=== PATIENT | female | born 1955 | race Caucasian/White ===

== ENCOUNTER 2017-12-09 03:08 | Outpatient (CLI) | payer OTHER, SELFPAY ==
[2017-12-09 11:37] LABS: TSH (W/Ref FT4) 0.27 uIU/mL (0.358-3.74)
[2017-12-09 11:48] LABS: Hemoglobin A1C 7.9 % (4.5-6.2)
== END 2017-12-09 03:28 ==
PROVIDERS: PCP Internal Medicine; Visit Provider Internal Medicine
DX: E03.9 Hypothyroidism, unspecified (principal); E78.5 Hyperlipidemia, unspecified; E11.65 Type 2 diabetes mellitus with hyperglycemia
CPT/HCPCS: 36415; 83036; 84439; 84443

== ENCOUNTER 2018-04-18 02:33 | Outpatient (CLI) | payer OTHER, SELFPAY ==
[2018-04-18 10:55] LABS: Hemoglobin A1C 8.4 % (4.5-6.2)
[2018-04-18 11:10] LABS: ALT 35 U/L (12-78); AST 17 U/L (15-37); Albumin 3.7 g/dL (3.4-5.0); Alkaline Phosphatase 54 U/L (46-116); BUN 18 mg/dL (7-18); Bilirubin, Total 0.7 mg/dL (0.2-1.0); Calcium 9.8 mg/dL (8.5-10.1); Chloride 109 mmol/L (98-107); Cholesterol 189 mg/dL (50-200); Estimated GFR 50.33 (mL/min/1.73m2); Glucose 182 mg/dL (70-100); HDL Cholesterol 72 mg/dL (40-60); LDL CHOLESTEROL 98 mg/dL (<100); Sodium 147 mmol/L (136-145); TSH (W/Ref FT4) 0.57 uIU/mL (0.358-3.74); Total Protein 6.8 g/dL (6.4-8.2); Triglyceride 88 mg/dL (30-150)
== END 2018-04-18 02:53 ==
DX: E03.9 Hypothyroidism, unspecified (principal); I10 Essential (primary) hypertension; E11.65 Type 2 diabetes mellitus with hyperglycemia; E78.5 Hyperlipidemia, unspecified; K21.9 Gastro-esophageal reflux disease without esophagitis; E66.9 Obesity, unspecified
CPT/HCPCS: 36415; 80053; 80061; 83721; 83036; 84443

== ENCOUNTER 2018-06-15 18:01 | Outpatient (REF) | payer OTHER, SELFPAY ==
--- NOTE | 2018-06-15 15:40 | PAPFT_PTH ---
PATIENT: Romy Craven LOC: [facility] U#:[id number] AGE/SX: 62/F ROOM: RE06/15/[address]: Mona Bowden APRN : 1955 BED: DIS: 06/15/2018 SPEC #: [id number] RECD: 06/16/18 16:40 STATUS: ARMAND REMatilda #: [id number] REG: 06/15/18 15:[address]: Mona Bowden [facility]PT[facility] Cytology RECD BY: Anthony Hendricks Tissues: 1 - CX/ENDOCX FOR PAP SMEARS Procedures: PAP THIN PREP/UVM Screening HPV DNA PROBE Comments: [id number]
== END 2018-06-15 18:21 ==
LOC: LBN 18:01
DX: Z12.4 Encounter for screening for malignant neoplasm of cervix (principal); Z11.51 Encounter for screening for human papillomavirus (HPV)
CPT/HCPCS: 88142; 87624

== ENCOUNTER 2018-06-27 01:59 | Outpatient (CLI) | payer OTHER, SELFPAY ==
[2018-06-27 11:44] LABS: Hemoglobin A1C 8.1 % (4.5-6.2)
== END 2018-06-27 02:19 ==
DX: E11.65 Type 2 diabetes mellitus with hyperglycemia (principal)
CPT/HCPCS: 36415; 83036

== ENCOUNTER 2018-07-21 00:07 | Outpatient (CLI) | payer OTHER, SELFPAY ==
--- NOTE | 2018-07-21 08:47 | DI.MAMMO_ITS ---
SYMPTOM/DIAGNOSIS: SCREENING, Z12.31 MAMMOGRAMS: Mammograms were interpreted according to the usual protocol including computer analysis with CAD system, tomosynthesis and C view imaging. The breasts are of moderate density with fairly symmetrical distribution of fibroglandular tissue. No dominant mass or clumped microcalcification is identified in either breast. Current examination is compared with previous examinations including 07/2016 and there has been no gross interval change in appearance in comparison with the previous studies. CONCLUSION: No specific evidence of malignancy at this time. Routine screening examinations are suggested at yearly intervals in this age group according to the ACS/ACR guidelines. Category 1. Breast density, Category B. MQSA ASSESSMENT OF FINDINGS: Negative. Category 1. Patient will receive a letter notifying them of these results. BI-RADS category B. There are scattered areas of fibroglandular density.
== END 2018-07-21 00:27 ==
DX: Z12.31 Encounter for screening mammogram for malignant neoplasm of breast (principal)
CPT/HCPCS: 77063; 77067

== ENCOUNTER 2018-09-05 02:20 | Outpatient (CLI) | payer OTHER, SELFPAY ==
[2018-09-05 10:57] LABS: Hemoglobin A1C 7.2 % (4.5-6.2)
[2018-09-05 13:13] LABS: ALT 27 U/L (12-78); AST 15 U/L (15-37); Albumin 3.8 g/dL (3.4-5.0); Alkaline Phosphatase 59 U/L (46-116); Anion Gap 11.6 mmol/L (3-11); BUN 18 mg/dL (7-18); Bilirubin, Total 0.7 mg/dL (0.2-1.0); CO2 25.4 mmol/L (21.0-32.0); CREATININE 1.08 mg/dL (0.55-1.02); Calcium 9.4 mg/dL (8.5-10.1); Calculated LDL 85; Chloride 108 mmol/L (98-107); Cholesterol 166 mg/dL (50-200); Estimated GFR 51.41 (mL/min/1.73m2); Glucose 77 mg/dL (70-100); HDL Cholesterol 54 mg/dL (40-60); Potassium 4.4 mmol/L (3.5-5.1); Sodium 145 mmol/L (136-145); Total Protein 6.8 g/dL (6.4-8.2); Triglyceride 138 mg/dL (30-150)
== END 2018-09-05 02:40 ==
DX: E03.9 Hypothyroidism, unspecified (principal); E11.65 Type 2 diabetes mellitus with hyperglycemia; E66.9 Obesity, unspecified; E78.5 Hyperlipidemia, unspecified; I10 Essential (primary) hypertension; E11.9 Type 2 diabetes mellitus without complications
CPT/HCPCS: 36415; 80053; 80061; 83721; 83036

== ENCOUNTER 2018-10-13 08:15 | Outpatient (CLI) | payer OTHER, SELFPAY ==
[2018-10-13 11:14] LABS: Hemoglobin A1C 7.3 % (4.5-6.2)
[2018-10-13 14:46] LABS: TSH (W/Ref FT4) 0.16 uIU/mL (0.358-3.74)
[2018-10-13 15:03] LABS: FREE T4 1.26 ng/dL (0.76-1.46)
== END 2018-10-13 08:35 ==
DX: E11.65 Type 2 diabetes mellitus with hyperglycemia (principal); E03.9 Hypothyroidism, unspecified
CPT/HCPCS: 36415; 83036; 84439; 84443

== ENCOUNTER 2019-01-09 02:43 | Outpatient (CLI) | payer OTHER, SELFPAY ==
[2019-01-09 12:44] LABS: Hemoglobin A1C 7.3 % (4.5-6.2)
== END 2019-01-09 03:03 ==
DX: E03.9 Hypothyroidism, unspecified (principal); E11.65 Type 2 diabetes mellitus with hyperglycemia; G47.00 Insomnia, unspecified
CPT/HCPCS: 36415; 83036; 84443

== ENCOUNTER 2019-10-09 02:26 | Outpatient (CLI) | payer BC, SELFPAY ==
[2019-10-09 12:45] LABS: Hemoglobin A1C 9.2 % (3.8-5.6)
[2019-10-09 13:02] LABS: ALT 41 U/L (14-59); AST 22 U/L (15-37); Alkaline Phosphatase 47 U/L (46-116); Anion Gap 13.9 mmol/L (3-11); BUN 30 mg/dL (7-18); Bilirubin, Total 0.9 mg/dL (0.2-1.0); CO2 22.1 mmol/L (21.0-32.0); CREATININE 1.36 mg/dL (0.55-1.02); Calcium 9.3 mg/dL (8.5-10.1); Chloride 107 mmol/L (98-107); Estimated GFR 39.27 (mL/min/1.73m2); Glucose 167 mg/dL (74-106); Potassium 4.7 mmol/L (3.5-5.1); Sodium 143 mmol/L (136-145); TSH (W/Ref FT4) 1.07 uIU/mL (0.36-3.74); Total Protein 6.9 g/dL (6.4-8.2)
== END 2019-10-09 02:46 ==
DX: E03.9 Hypothyroidism, unspecified (principal); E11.65 Type 2 diabetes mellitus with hyperglycemia; E66.09 Other obesity due to excess calories; Z68.32 Body mass index [BMI] 32.0-32.9, adult; G47.00 Insomnia, unspecified
CPT/HCPCS: 36415; 80053; 83036; 84443

== ENCOUNTER 2019-11-12 22:21 | Emergency (ER) | payer OTHER, BC, SELFPAY ==
[2019-11-12 22:08] VITALS: BP 132/90; PULSE 69; RESP 16; TEMP 36.3; O2SAT 99
--- NOTE | 2019-11-12 22:17 | ED.GENADUL_ITS ---
Discharge Plan Disposition Patient Disposition: HOME Condition: Stable Discharge Details Chief Complaint: Orthopedic Clinical Impression: Contusion of leg, right Primary Care Provider: Mona Bowden ED Provider: Ed Hernandez Home Meds and New Rx's Prescriptions: Continued (DME) lancets [BD Ultra Fine Lancets] 33 gauge misc See Dose Instructions .ROUTE .MEDSUPPLY Qty: 100 RF: 3 magnesium oxide 420 mg tablet 420 mg PO DAILY Qty: 90 RF: 0 glipizide 10 mg tablet 10 mg PO BID Qty: 180 RF: 3 multivitamin [Once Daily] 1 EACH tablet 1 ea PO DAILY RF: 0 (DME) blood-glucose meter [FreeStyle Precision Felipe Meter] misc See Dose Instructions .ROUTE .MEDSUPPLY Qty: 1 RF: 0 (DME) FreeStyle Test strip See Dose Instructions .ROUTE .MEDSUPPLY Qty: 200 RF: 3 (DME) FreeStyle Jessica 14 Day [place] Misc See Dose Instructions .ROUTE .MEDSUPPLY Qty: 1 RF: 0 levothyroxine 88 mcg capsule 88 mcg PO DAILY Qty: 90 RF: 3 lisinopril 10 mg tablet 10 mg PO DAILY Qty: 90 RF: 3 metformin 1,000 mg tablet 1,000 mg PO BID Qty: 180 RF: 3 semaglutide 3 mg tablet 3 mg PO DAILY Qty: 90 RF: 3 pravastatin [Pravachol] 40 mg tablet 40 mg PO DAILY Qty: 90 RF: 4 (DME) FreeStyle Jessica 14 Day Sensor Kit See Dose Instructions .ROUTE .MEDSUPPLY Qty: 1 RF: 6 acetaminophen [Tylenol] 325 MG tablet 650 mg PO Q4H PRN PRNRF: 0 sulfamethoxazole-trimethoprim [Bactrim] 400-80 mg Tablet 1 tab PO BID RF: 0 Discharge Instructions Instructions: Contusion in Adults (ED) Additional Instructions: take tylenol if needed for pain, 1000mg every 6 hours follow up with your primary care provider if pain continues in a week return for worsening pain, difficulty breathing, severe headache or if you feel more ill Stand Alone Forms: Work Release Medical Decision Making 63 yo female with hx of gerd, dm, htn, hld, who comes in with ems after she fell. 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 Denies loc and no prior symptoms such as chest pain/pressure, dyspnea, headache, abdominal pain. She arrives with pain in the right posterior mid thigh. She has no traumatic findings on exam and has full rom of the hip, knee and ankle with intact sensation and pulses. No back tenderness, abd tenderness, chest tenderness, neck tenderness or scalp deformities. Suspect contusion but will xray to eval for fx pt declining xrays as she doesn't feel it is likely broken and would like tylenol and crutches. I did recommend xrays but she declined. She has capacity to make her own decisions and understands risks of missing fractures such as prolonged healing and dysfunction,though I agree it is unlikely a fracture given full rom. Will haveher f/u with pcp and return precautions given Differential Diagnosis Differential Diagnosis: contusion sprain fx HPI General Mode of arrival: ambulatory . Limitations to Documentation: no limitations . Information obtained by: patient . History of Present Illness 63 year old F presents to the emergency department with the chief complaint of right leg pain, described as moderate, and it has been constant. No relieving factors improve symptom(s), Patient did receive the following treatments prior to arrival, none Related Data Home Medications Medication Instructions Recorded Confirmed multivitamin [Once Daily] 1 ea PO DAILY 09/22/12 11/12/19 acetaminophen [Tylenol] 650 mg PO Q4H PRN PRN tab 11/05/15 11/12/19 lancets 33 gauge #100 each 05/26/18 03/13/19 magnesium oxide 420 mg tablet 420 mg PO DAILY #90 tab 05/26/18 11/12/19 blood sugar diagnostic #200 each 06/10/18 03/13/19 blood-glucose meter #1 each 06/10/18 03/13/19 glipizide 10 mg tablet 10 mg PO BID #180 tab-cap 06/15/18 11/12/19 flash glucose scanning reader #1 each 08/23/19 levothyroxine 88 mcg capsule 88 mcg PO DAILY #90 cap 10/23/19 11/12/19 lisinopril 10 mg tablet 10 mg PO DAILY #90 tab-cap 10/23/19 11/12/19 metformin 1,000 mg tablet 1,000 mg PO BID #180 tab-cap 10/23/19 11/12/19 pravastatin 40 mg tablet 40 mg PO DAILY #90 tab-cap 10/23/19 11/12/19 semaglutide 3 mg tablet 3 mg PO DAILY #90 tab 10/23/19 11/12/19 flash glucose sensor #1 each 11/06/19 sulfamethoxazole-trimethoprim 1 tab PO BID 11/12/19 11/12/19 [Bactrim] Previous Rx's Medication Instructions Recorded acetaminophen [Tylenol] 650 mg PO Q4H PRN PRN tab 11/05/15 lancets 33 gauge #100 each 05/26/18 magnesium oxide 420 mg tablet 420 mg PO DAILY #90 tab 05/26/18 blood sugar diagnostic #200 each 06/10/18 blood-glucose meter #1 each 06/10/18 glipizide 10 mg tablet 10 mg PO BID #180 tab-cap 06/15/18 flash glucose scanning reader #1 each 08/23/19 levothyroxine 88 mcg capsule 88 mcg PO DAILY #90 cap 10/23/19 lisinopril 10 mg tablet 10 mg PO DAILY #90 tab-cap 10/23/19 metformin 1,000 mg tablet 1,000 mg PO BID #180 tab-cap 10/23/19 pravastatin 40 mg tablet 40 mg PO DAILY #90 tab-cap 10/23/19 semaglutide 3 mg tablet 3 mg PO DAILY #90 tab 10/23/19 flash glucose sensor #1 each 11/06/19 Allergies Allergy/AdvReac Type Severity Reaction Status Date / Time erythromycin base AdvReac Unknown DIARRHEA Verified 11/12/19 22:12 General Stated Complaint: Orthopedic NICK: 4 Review of Systems All systems reviewed & are unremarkable except as noted in HPI and below Constitutional Constitutional: Denies chills, Denies fever(s) and Denies weakness Cardiovascular Cardiovascular: Denies chest pain and Denies dyspnea Respiratory Respiratory: Denies cough and Denies dyspnea Gastrointestinal Gastrointestinal: Denies abdominal pain, Denies nausea and Denies vomiting Musculoskeletal Musculoskeletal: Denies joint swelling Neurologic Neurologic: Denies weakness Psychiatric Psychiatric: Denies depression [facility] Medical History (Updated 11/12/19 @ 22:23 by Ed Hernandez MD) Acute lateral meniscal injury of right knee (Acute 11/15/15) Acute lateral meniscus tear of right knee (Acute 08/26/15) meniscectomy 11/2015 Calculus of kidney and ureter (Active 10/04/12) Left ureteroscopy with stone removal by Dr. Gilbert 10/04/2012. Closed fracture of proximal end of left humerus (Acute ~12/2015) Decreased renal function (Acute) Diabetes DM (diabetes mellitus), type 2, uncontrolled (Chronic) GERD (gastroesophageal reflux disease) (Acute) Hyperlipidemia Hyperlipidemia (Chronic 09/22/12) Hypertension Hypertension (Chronic) Hypothyroidism (Chronic 09/22/12) Knee pain, right (Acute 09/21/13) Obesity (Chronic 09/22/12) Pap smear vag w ASC-US (Resolved 03/04/02) neg. HPV Surgical History Kidney Stone Extraction (~10/2012) Family History Mother Essential hypertension Heart disease Father , 64 Diabetes Essential hypertension Heart disease Sister Essential hypertension Hyperlipidemia Sister Diabetes Sister Diabetes Sister No problems noted. Daughter No problems noted. Social History Smoking/Tobacco Use Status: Never Second Hand Exposure: Yes Alcohol Intake: never Drug use: Never Substance use type: does not use Caregiver/Support person: No Household members: none Housing: house Communication Needs: Corrective Lenses Do you need help understanding health information?: Never Pets and animals: Yes Pets and animals: cat(s) Sexually active: No Do you think of yourself as: straight/heterosexual Current gender identity: female What is your relationship status?: How often do you talk on the phone with friends or family?: three or more times per week How often do you get together with friends or relatives?: once per week How often do you attend gnosticist or taoism services?: 4 or more times per year Do you belong to any clubs or organized social groups?: no Panel score (0-1 are the most socially isolated patients): 2 What type of physical activity do you participate in: walking Duration: 15-30 minutes/day Frequency: 1-2 times per week Alexandrea/Protestant: Buddhism Special alexandrea needs: No Seatbelt use: always Helmet use: No Drive intox 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 Do you feel safe at home: Yes Do you feel safe in your relationship?: Yes Exam Const General: no acute distress Orientation: alert HENMT Head: normal to inspection Ears: external ears normal General nose exam: external nose normal Mouth: moist mucous membranes Eyes General: appearance normal, both eyes and all related structures Neck Neck: normal visual inspection Resp Effort & Inspection: normal respiratory effort and able to speak in complete sentences Cardio Rate: regular rate Skin General skin exam: no rashes or lesions noted Neuro General: patient alert and patient oriented x3 Extrem General: full ROM Psych Mental Status: mental status grossly normal Course Vital Signs Vital signs: Vital Signs Temperature 36.3 C L 11/12/19 22:08 Pulse 69 11/12/19 22:08 Respiratory Rate 16 11/12/19 22:08 Blood Pressure 132/90 11/12/19 22:08 Pulse Oximetry 99 11/12/19 22:08 Temperature 36.3 C L 11/12/19 22:08 Temperature Source Skin 11/12/19 22:08 Pulse 69 11/12/19 22:08 Respiratory Rate 16 11/12/19 22:08 Blood Pressure 132/90 11/12/19 22:08 Pulse Oximetry 99 11/12/19 22:08 Pain Level 4 11/12/19 22:08
[2019-11-12] MEDS: Acetaminophen 500 MG TAB 1000 MG PO (22:22)
[2019-11-12] MEDS: Cyclobenzaprine 10 MG TAB PO (23:00)
== END 2019-11-12 23:30 | disposition home or self-care (01) ==
PROVIDERS: Emergency Provider Emergency Medicine
DX: S70.11XA Contusion of right thigh, initial encounter (principal); W01.0XXA Fall on same level from slipping, tripping and stumbling without subsequent striking against object, initial encounter; Y99.0 Civilian activity done for income or pay; E11.9 Type 2 diabetes mellitus without complications; Z79.84 Long term (current) use of oral hypoglycemic drugs; I10 Essential (primary) hypertension
CPT/HCPCS: 99283; E0114

== ENCOUNTER 2020-03-06 03:25 | Outpatient (CLI) | payer BC, SELFPAY ==
[2020-03-06 12:35] LABS: Hemoglobin A1C 8.1 % (<5.7)
== END 2020-03-06 03:45 ==
DX: E11.65 Type 2 diabetes mellitus with hyperglycemia (principal)
CPT/HCPCS: 36415; 83036

== ENCOUNTER 2020-05-14 19:01 | Outpatient (REF) | payer OTHER, SELFPAY ==
[2020-05-14 21:47] LABS: Abs Immature Grans 0.01 10^3/uL (0.0-0.06); Absolute Basophil Count 0.04 10^3/uL (0.0-0.2); Absolute Eosinophil Count 0.19 10^3/uL (0.0-0.7); Absolute Lymphocyte Count 2.63 10^3/uL (1.2-3.4); Absolute Monocyte Count 0.57 10^3/uL (0.1-0.8); Absolute Neutrophil Count 3.49 10^3/uL (1.2-6.7); Basophils % 0.6; Eosinophils % 2.7; HCT 37.2 % (36.0-46.0); HGB 12.2 g/dL (11.2-15.7); Immature Grans % 0.1; MCH 27.7 pg (27.0-33.0); MCHC 32.8 % (32.0-36.0); MCV 84.5 fL (80-95); MPV 11.3 fL (8.0-11.0); Monocytes % 8.2; Neutrophils % 50.4; Nucleated RBC 0 %; Platelet Count 297 10^3/uL (130-400); RDW 13.5 % (11.7-14.6); RDW-SD 41.9 fL; WBC 6.93 10^3/uL (4.4-10.8)
[2020-05-14 21:58] LABS: ALT 40 U/L (14-59); AST 20 U/L (15-37); Albumin 3.9 g/dL (3.4-5.0); Alkaline Phosphatase 51 U/L (46-116); Anion Gap 10.2 mmol/L (3-11); BUN 26 mg/dL (7-18); Bilirubin, Total 0.6 mg/dL (0.2-1.0); CO2 25.8 mmol/L (21.0-32.0); CREATININE 1.5 mg/dL (0.55-1.02); Calcium 9.7 mg/dL (8.5-10.1); Chloride 107 mmol/L (98-107); Estimated GFR 34.96 (mL/min/1.73m2); Glucose 297 mg/dL (74-106); Potassium 4.2 mmol/L (3.5-5.1); Sodium 143 mmol/L (136-145)
== END 2020-05-14 19:02 | disposition home or self-care (01) ==
LOC: LBN 19:01
PROVIDERS: Visit Provider Physician Assistant
DX: N39.0 Urinary tract infection, site not specified (principal); R41.0 Disorientation, unspecified; R73.09 Other abnormal glucose
CPT/HCPCS: 80053; 87077; 85025; 87086; 87186

== ENCOUNTER 2020-05-19 13:04 | Emergency (ER) | payer OTHER, SELFPAY ==
[2020-05-19] VITALS (14 sets, daily range): BP systolic 126–153; BP diastolic 64–86; PULSE 58–88; RESP 18–20; TEMP 36.3–36.7; O2SAT 96–100
--- NOTE | 2020-05-19 13:46 | ED.GENADUL_ITS ---
Discharge Plan Disposition Patient Disposition: HOME Condition: Stable Discharge Details Clinical Impression: UTI (urinary tract infection) Primary Care Provider: Mona Bowden ED Provider: Lauren Rajan Home Meds and New Rx's Prescriptions: Continued magnesium oxide 420 mg tablet 420 mg PO DAILY Qty: 90 RF: 0 metformin 1,000 mg tablet 1,500 mg PO DAILY Qty: 180 RF: 3 (DME) FreeStyle Jessica 14 Day Sensor Kit See Dose Instructions .ROUTE .MEDSUPPLY Qty: 6 RF: 4 multivitamin [Once Daily] 1 EACH tablet 1 ea PO DAILY RF: 0 (DME) FreeStyle Jessica 14 Day [place] Misc See Dose Instructions .ROUTE .MEDSUPPLY Qty: 1 RF: 0 levothyroxine 88 mcg capsule 88 mcg PO DAILY Qty: 90 RF: 3 lisinopril 10 mg tablet 10 mg PO DAILY Qty: 90 RF: 3 pravastatin [Pravachol] 40 mg tablet 40 mg PO DAILY Qty: 90 RF: 4 (DME) blood-glucose meter [FreeStyle Precision Felipe Meter] Misc See Dose Instructions .ROUTE .MEDSUPPLY Qty: 1 RF: 0 (DME) lancets [BD Ultra Fine Lancets] 33 gauge misc See Dose Instructions .ROUTE .MEDSUPPLY Qty: 100 RF: 3 (DME) FreeStyle Test Strip See Dose Instructions .ROUTE .MEDSUPPLY Qty: 200 RF: 3 acetaminophen [Tylenol] 325 MG tablet 650 mg PO Q4H PRN PRNRF: 0 No Action cephalexin [Keflex] 500 mg capsule 500 mg PO QID Qty: 28 RF: 0 semaglutide 3 mg tablet 6 mg PO DAILY Qty: 90 RF: 3 glipizide 5 mg tablet 5 mg PO BID Qty: 180 RF: 3 Discharge Instructions Instructions: Urinary Tract Infection in Women (ED) Additional Instructions: Follow up with primary care provider in 3-5 days. Return to ED sooner if any worsening or concerns. Increase oral fluids. Take Tylenol as needed for pain. At this time CT scan does show a kidney stone on the right, no backup of fluid or with known as hydronephrosis. You may have already passed another kidney stone on the left side. Keep taking antibiotic as directed. Referrals: Mona Bowden NP [Primary Care Provider] - Discharge Data Discharge Date/Time-TO BE ENTERED AT DEPARTURE: 05/19/20 16:34 Medical Decision Making 64-year-old female presents to the ED chief complaint of flank pain status post being diagnosed with pyelonephritis on May 17. She was seen at urgent care x2, was given Cipro which cultures revealed her was resistant to, was recently placed on 1 g of Rocephin IM, and cephalexin. Patient states that she still feels, emesis x1 on Wednesday, she does have a past medical history of GERD, diabetes type 2, kidney stones, hypothyroidism. Work-up ordered including CBC, CMP which is largely within normal limits for patient and at her baseline levels, no leukocytosis, urine shows no WBCs no nitrites, culture is not indicated at this time. IMPRESSION: 1. Compared to the prior CT scan 2012 there are presently tiny nonobstructive calculi noted both kidneys. The previously present obstructing calculus in the lower left ureter is no longer seen. No other focal renal findings evident on this noninfused study. No obvious abnormality in the nondistended urinary bladder. 2. Significant improvement in in the previously present hepatic steatosis which was evident on the 2013 study. 3. No ascites nor lymphadenopathy. Discussed lab and CT results with patient who verbalizes understanding. Offered pain medication which patient declined at this time. Instructed to follow up with PCP. Lab Data Lab results reviewed: Yes I reviewed the patient's lab results. HPI General Mode of arrival: ambulatory . Date/Time Provider Initiated Documentation: 05/19/20 13:09 . Limitations to Documentation: no limitations . Information obtained by: patient . HPI Narrative: 64-year-old female presents to the ED chief complaint of flank pain status post being diagnosed with pyelonephritis on May 17. She was seen at urgent care x2, was given Cipro which cultures revealed her was resistant to, was recently placed on 1 g of Rocephin IM, and cephalexin. Patient states that she still feels, emesis x1 on Wednesday, she does have a past medical history of GERD, diabetes type 2, kidney stones, hypothyroidism. Related Data Home Medications Medication Instructions Recorded Confirmed multivitamin [Once Daily] 1 ea PO DAILY 09/22/12 05/19/20 acetaminophen [Tylenol] 650 mg PO Q4H PRN PRN tab 11/05/15 05/19/20 magnesium oxide 420 mg tablet 420 mg PO DAILY #90 tab 05/26/18 05/19/20 flash glucose scanning reader #1 each 08/23/19 01/11/20 levothyroxine 88 mcg capsule 88 mcg PO DAILY #90 cap 10/23/19 05/19/20 lisinopril 10 mg tablet 10 mg PO DAILY #90 tab-cap 10/23/19 05/19/20 pravastatin 40 mg tablet 40 mg PO DAILY #90 tab-cap 10/23/19 05/19/20 flash glucose sensor #6 each 11/13/19 01/11/20 metformin 1,000 mg tablet 1,500 mg PO DAILY #180 tab-cap 11/13/19 05/19/20 blood sugar diagnostic #200 each 01/18/20 blood-glucose meter #1 each 01/18/20 lancets 33 gauge #100 each 01/18/20 glipizide 5 mg tablet 5 mg PO BID #180 tab 05/22/20 cephalexin 500 mg capsule 500 mg PO QID #28 cap 05/24/20 05/24/20 semaglutide 3 mg tablet 6 mg PO DAILY #90 tab 05/24/20 05/24/20 Previous Rx's Medication Instructions Recorded acetaminophen [Tylenol] 650 mg PO Q4H PRN PRN tab 11/05/15 magnesium oxide 420 mg tablet 420 mg PO DAILY #90 tab 05/26/18 flash glucose scanning reader #1 each 08/23/19 levothyroxine 88 mcg capsule 88 mcg PO DAILY #90 cap 10/23/19 lisinopril 10 mg tablet 10 mg PO DAILY #90 tab-cap 10/23/19 pravastatin 40 mg tablet 40 mg PO DAILY #90 tab-cap 10/23/19 flash glucose sensor #6 each 11/13/19 metformin 1,000 mg tablet 1,500 mg PO DAILY #180 tab-cap 11/13/19 blood sugar diagnostic #200 each 01/18/20 blood-glucose meter #1 each 01/18/20 lancets 33 gauge #100 each 01/18/20 glipizide 5 mg tablet 5 mg PO BID #180 tab 05/22/20 cephalexin 500 mg capsule 500 mg PO QID #28 cap 05/24/20 semaglutide 3 mg tablet 6 mg PO DAILY #90 tab 05/24/20 Allergies Allergy/AdvReac Type Severity Reaction Status Date / Time erythromycin base AdvReac Unknown DIARRHEA Verified 05/24/20 09:10 General Stated Complaint: Urinary NICK: 3 Review of Systems Narrative: Constitutional: Negative for weight loss, alert and oriented, well groomed, normal body habitus, appears comfortable. HEENT: Denies trauma, headaches, blurry vision, nasal discharge, sore throat, trouble swallowing. Chest: Denies chest pain, palpitations, irregular rhythm, hypertension. Respiratory: Denies Shortness of breath, cough, hemoptysis. GI: Denies diarrhea, constipation. Had an episode of nausea vomiting on Wednesday after taking antibiotic. : Denies rectal bleeding. Reports flank pain right greater than left. Recent diagnosis of UTI and possible pyelonephritis. Neuro: Denies blurry vision, weakness, syncope, headache or facial numbness. Hematologic: Denies easy bruising, intolerance to heat or cold, hair loss. [facility] Medical History Acute lateral meniscal injury of right knee (11/15/15) Acute lateral meniscus tear of right knee (08/26/15) meniscectomy 11/2015 Calculus of kidney and ureter (10/04/12) Left ureteroscopy with stone removal by Dr. Gilbert 10/04/2012. Closed fracture of proximal end of left humerus (~12/2015) Contusion of right leg Decreased renal function DM (diabetes mellitus), type 2, uncontrolled GERD (gastroesophageal reflux disease) Hyperlipidemia (09/22/12) Hypertension Hypothyroidism (09/22/12) Knee pain, right (09/21/13) Obesity (09/22/12) Pap smear vag w ASC-US (03/04/02) neg. HPV Surgical History Kidney Stone Extraction (~10/2012) Family History Mother Essential hypertension Heart disease Father , 64 Diabetes Essential hypertension Heart disease Sister Essential hypertension Hyperlipidemia Sister Diabetes Sister Diabetes Sister No problems noted. Daughter No problems noted. Social History Smoking/Tobacco Use Status: Never Second Hand Exposure: Yes Smoking risk assessment performed?: Yes Alcohol Intake: never Drug use: Never Substance use type: does not use Caregiver/Support person: No Household members: none Housing: house Communication Needs: Corrective Lenses Do you need help understanding health information?: Never Pets and animals: Yes Pets and animals: cat(s) Sexually active: No Do you think of yourself as: straight/heterosexual Current gender identity: female What is your relationship status?: How often do you talk on the phone with friends or family?: three or more times per week How often do you get together with friends or relatives?: once per week How often do you attend hinduism or restorationist services?: 4 or more times per year Do you belong to any clubs or organized social groups?: no Panel score (0-1 are the most socially isolated patients): 2 What type of physical activity do you participate in: walking Duration: 15-30 minutes/day Frequency: 1-2 times per week Alexandrea/Episcopalian: Jehovah'S Witness Special alexandrea needs: No Seatbelt use: always Helmet use: No Drive intox or ride 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 Appears stated age. Normal body habitus. Head: Normocephalic, no trauma. Eyes: Pupils PERRLA, Red reflex noted, EOM's intact. Eyelids symmetrical without lesions, discharge, or swelling. ENT: Bilateral TM's WNL, External ear normal to inspection, no mastoid TTP, swelling, or erythema, Nasal turbinates WNL, no nasal discharge. Normal dent ition, Posterior pharynx WNL, no exudate. Chest: RRR, Normal S1, S2, distal pulses intact. Resp: Lungs clear to auscultation bilaterally, no wheezes, rales, or rhonchi. Abdomen: Soft, nondistended left lower quadrant tenderness with palpation, positive right-sided CVA tenderness with palpation. Musculoskeletal: Normal gait, 5/5 strength to all four extremities. Skin: No suspicious rashes or lesions. Capillary refill less than 2 sec. Neurologic: Cranial nerves II-XII intact. Alert and oriented x 3. DTR's intact. Hematologic/Lymphatic: No ecchymosis, no lymphadenopathy. Course Vital Signs Vital signs: Vital Signs Temperature 36.7 C 05/19/20 13:15 Pulse 88 05/19/20 13:15 Respiratory Rate 18 05/19/20 13:15 Blood Pressure 148/86 H 05/19/20 13:15 Pulse Oximetry 98 05/19/20 13:15 Temperature 36.7 C 05/19/20 13:15 Temperature Source Oral 05/19/20 13:15 Pulse 88 05/19/20 13:15 Respiratory Rate 18 05/19/20 13:15 Respiratory Effort Non-Labored 05/19/20 13:22 Blood Pressure 148/86 H 05/19/20 13:15 Blood Pressure Position Sitting 05/19/20 13:15 Pulse Oximetry 98 05/19/20 13:15 Oxygen Delivery Method Room Air 05/19/20 13:15 Oxygen Flow Rate 0 05/19/20 13:15 Pain Level 6 05/19/20 13:40
[2020-05-19 13:47] LABS: Abs Immature Grans 0.02 10^3/uL (0.0-0.06); Absolute Basophil Count 0.05 10^3/uL (0.0-0.2); Absolute Lymphocyte Count 2.71 10^3/uL (1.2-3.4); Absolute Monocyte Count 0.61 10^3/uL (0.1-0.8); Absolute Neutrophil Count 4.16 10^3/uL (1.2-6.7); Basophils % 0.6; Eosinophils % 2.6; HGB 12.8 g/dL (11.2-15.7); Immature Grans % 0.3; Lactate 1.9 mmol/L (0.6-1.4); MCH 28.3 pg (27.0-33.0); MCHC 32.8 % (32.0-36.0); MCV 86.3 fL (80-95); MPV 10.6 fL (8.0-11.0); Monocytes % 7.9; Neutrophils % 53.6; Nucleated RBC 0 %; Platelet Count 288 10^3/uL (130-400); RBC 4.52 10^6/uL (3.93-5.22); RDW 13.6 % (11.7-14.6); RDW-SD 42.5 fL; WBC 7.75 10^3/uL (4.4-10.8)
[2020-05-19 14:04] LABS: ALT 49 U/L (14-59); AST 23 U/L (15-37); Albumin 4.2 g/dL (3.4-5.0); Alkaline Phosphatase 53 U/L (46-116); Anion Gap 11.6 mmol/L (3-11); BUN 23 mg/dL (7-18); Bilirubin, Total 0.7 mg/dL (0.2-1.0); CO2 24.4 mmol/L (21.0-32.0); CREATININE 1.4 mg/dL (0.55-1.02); Calcium 9.6 mg/dL (8.5-10.1); Chloride 106 mmol/L (98-107); Estimated GFR 37.86 (mL/min/1.73m2); Glucose 143 mg/dL (74-106); Potassium 4.3 mmol/L (3.5-5.1); Sodium 142 mmol/L (136-145); Total Protein 7.7 g/dL (6.4-8.2)
--- NOTE | 2020-05-19 14:50 | DI.CT_ITS ---
EXAM: CT ABDOMEN PELVIS WO CLINICAL HISTORY: Bilateral Flank pain, R/O pyelonephritis. TECHNIQUE: Imaging Protocol: Axial computed tomography images with coronal and sagittal reformatted images were created and reviewed CONTRAST MATERIAL: Intravenous: none Oral: None COMPARISON: CT ABD PELVIS WO CONTRAST from 10/02/2012 FINDINGS: VISUALIZED LUNG BASES: No nodules nor pleural effusions evident. ABDOMEN: There is no ascites. LIVER: There are no obvious focal hepatic lesions evident of this noninfused study. GALLBLADDER/BILIARY: No obvious gallbladder pathology. CBD is not dilated. PANCREAS: No evidence of pancreatic mass nor dilatation of the pancreatic duct. SPLEEN: Spleen is not enlarged. No obvious intrasplenic lesions. ADRENALS: There are no significant adrenal masses. KIDNEYS:No cysts evident. No solid renal masses. However, the there are punctate calculi seen in bot h kidneys. No hydronephrosis nor hydroureter. No calculi seen within the nondilated ureters.. Also no calculi evident within the nondistended urinary bladder.. ABDOMINAL AORTA: Abdominal aorta is not enlarged and there is no idtbbemokydmsuw-omaz-rbhtab adenopat hy. ABDOMINAL WALL/GI: No evidence of significant anterior abdominal wall hernia. No bowel obstruction. PELVIS: LYMPH NODES: There is no intrapelvic nor inguinal adenopathy. GI: No evidence of appendicitis.No evidence of sigmoid diverticulitis. URINARY BLADDER: No calculi nor obvious masses evident REPRODUCTIVE: Uterus and adnexal regions appear age-appropriate. No abnormal adnexal masses nor free fluid in the pelvis. OSSEOUS: No significant osseous lesions. IMPRESSION: 1. Compared to the prior CT scan 2012 there are presently tiny nonobstructive calculi noted both kidn eys. The previously present obstructing calculus in the lower left ureter is no longer seen. No oth er focal renal findings evident on this noninfused study. No obvious abnormality in the nondistended urinary bladder. 2. Significant improvement in in the previously present hepatic steatosis which was evident on the study. 3. No ascites nor lymphadenopathy. RADIATION DOSE DELIVERED: 933.11mGy.cm Total DLP DATA REPOSITORY: All CT scans at this facility are submitted to the National Radiology Data Registry (NRDR) Dose Index Registry (DIR) with the [employer] [place] [employer] (ACR). RADIATION OPTIMIZATION: All CT scans at this facility use at least one of these dose optimization te chniques: automated exposure control; mA and/or kV adjustment per patient size (includes targeted exa ms where dose is matched to clinical indication); or iterative reconstruction.
--- NOTE | 2020-05-19 15:15 | DI.VRAD_ITS ---
PROCEDURE INFORMATION: Exam: CT Abdomen And Pelvis Without Contrast Exam date and time: 05/19/2020 1:51 PM Age: 64 years old Clinical indication: Abdominal pain; Right; Patient HX: Bilat flank pain R/O pyelonephritis TECHNIQUE: Imaging protocol: Computed tomography of the abdomen and pelvis without contrast. Radiation optimization: All CT scans at this facility use at least one of these dose optimization techniques: automated exposure control; mA and/or kV adjustment per patient size (includes targeted exams where dose is matched to clinical indication); or iterative reconstruction. COMPARISON: No relevant prior studies available. FINDINGS: Liver: Normal. No mass. Gallbladder and bile ducts: Normal. No calcified stones. No ductal dilation. Pancreas: Normal. No ductal dilation. Spleen: Normal. No splenomegaly. Adrenal glands: Normal. No mass. Kidneys and ureters: There are bilateral nonobstructing renal calculi. No hydronephrosis. Stomach and bowel: Moderate fecal retention pattern. Appendix: The appendix is well seen, within normal limits. Intraperitoneal space: Unremarkable. No free air. No significant fluid collection. Vasculature: Moderate atherosclerotic change seen in the vasculature. Lymph nodes: Unremarkable. No enlarged lymph nodes. Urinary bladder: Unremarkable as visualized. Reproductive: Unremarkable as visualized. Bones/joints: Unremarkable. No acute fracture. Soft tissues: Unremarkable. IMPRESSION: No acute abnormality seen to account for symptoms. Please note pyelonephritis can be occult on noncontrast evaluation. Dictated and Authenticated by: Kasia Mosley MD. Ordering:DON Aguilar MD
[2020-05-19] MEDS: Normal Saline 1,000 ML 150 ML IV (15:27)
[2020-05-19 16:19] LABS: Bilirubin Negative (Negative); Blood Negative (Negative); Clarity Clear (Clear); Glucose 100 mg/dL (Negative); Ketones Negative (Negative); Leukocyte Esterase Negative (Negative); Nitrite Negative (Negative); Specific Gravity >= 1.030 (1.005-1.025); Urobilinogen 0.2 EU/dL (Up TO 0.2); pH 5.5 (5-8)
== END 2020-05-19 16:34 | disposition home or self-care (01) ==
PROVIDERS: Emergency Provider Registered Nurse Emergency
DX: N39.0 Urinary tract infection, site not specified (principal); E11.9 Type 2 diabetes mellitus without complications
CPT/HCPCS: 36416; 80053; 82962; 99284; 74176; 81003; 83605; 85025; 99283

== ENCOUNTER 2020-06-28 03:24 | Outpatient (CLI) | payer OTHER, SELFPAY ==
--- NOTE | 2020-06-28 07:00 | DI.MAMMO_ITS ---
EXAM: MAMMO SCREENING CLINICAL HISTORY: screening,Z12.39 TECHNIQUE: Mammograms were interpreted according to the usual protocol including computer analysis w [employer] system, tomosynthesis and C-view imaging. COMPARISON: FINDINGS: Breasts are of moderate density with fairly symmetrical distribution of fibroglandular tissue. No do minant mass or clumped microcalcification is identified in either breast. The current examination is compared with previous examinations including July 2018 and there has been no gross interval change in appearance in comparison with the prior studies. IMPRESSION: No specific evidence of malignancy at this time. Routine screening examinations are suggested at yea rly intervals in this age group according to the ACS ACR guidelines. BI-RADS Category 1 - Negative Breast Density - Category B - Scattered areas of fibroglandular density
== END 2020-06-28 03:44 ==
DX: Z12.31 Encounter for screening mammogram for malignant neoplasm of breast (principal)
CPT/HCPCS: 77063; 77067

== ENCOUNTER 2020-07-02 17:30 | Outpatient (REF) | payer OTHER, SELFPAY | END 2020-07-02 17:31 | disposition home or self-care (01) | LOC: LBN 17:30 | PROVIDERS: Visit Provider Nurse Practitioner Gerontology | DX: N39.0 Urinary tract infection, site not specified (principal) | CPT/HCPCS: 87086 ==

== ENCOUNTER 2020-10-23 02:57 | Outpatient (CLI) | payer OTHER, SELFPAY ==
[2020-10-23 13:03] LABS: Hemoglobin A1C 8.9 % (<5.7)
[2020-10-23 13:20] LABS: Anion Gap 7.8 mmol/L (3-11); BUN 25 mg/dL (7-18); CO2 27.2 mmol/L (21.0-32.0); CREATININE 1.4 mg/dL (0.55-1.02); Calcium 9.1 mg/dL (8.5-10.1); Chloride 111 mmol/L (98-107); Estimated GFR 37.86 (mL/min/1.73m2); Glucose 167 mg/dL (74-106); Potassium 4.6 mmol/L (3.5-5.1); Sodium 146 mmol/L (136-145)
== END 2020-10-23 02:58 | disposition home or self-care (01) ==
LOC: LOS 02:58
DX: E11.65 Type 2 diabetes mellitus with hyperglycemia (principal); N12 Tubulo-interstitial nephritis, not specified as acute or chronic
CPT/HCPCS: 36415; 80048; 83036

== ENCOUNTER 2021-01-13 19:59 | Outpatient (REF) | payer MEDICARE, OTHER, SELFPAY ==
[2021-01-13 19:32] LABS: Bilirubin Negative (Negative); Blood Trace-intact (Negative); Clarity Cloudy (Clear); Glucose Negative (Negative); Ketones Negative (Negative); Leukocyte Esterase Large (Negative); Nitrite Negative (Negative); Specific Gravity >= 1.030 (1.005-1.025); Urobilinogen 0.2 EU/dL (Up TO 0.2); pH 5.5 (5-8)
[2021-01-13 20:18] LABS: Epithelial Cells Few HPF (Negative); WBC >50 HPF (0-5)
[2021-01-13 20:19] LABS: Bacteria Few HPF (Negative); C & S Indicated? Yes; Crystals Negative HPF (Negative); Mucus Negative (Negative)
== END 2021-01-13 20:00 | disposition home or self-care (01) ==
LOC: LBN 19:59
PROVIDERS: Visit Provider Family Medicine
DX: R30.0 Dysuria (principal)
CPT/HCPCS: 81003; 81015; 87086

== ENCOUNTER 2021-01-14 02:26 | Outpatient (CLI) | payer MEDICARE, OTHER, SELFPAY ==
[2021-01-14 12:44] LABS: Hemoglobin A1C 8.7 % (<5.7)
== END 2021-01-14 02:27 | disposition home or self-care (01) ==
LOC: LOS 02:27
DX: E11.65 Type 2 diabetes mellitus with hyperglycemia (principal)
CPT/HCPCS: 36415; 83036

== ENCOUNTER 2021-04-08 03:14 | Outpatient (CLI) | payer MEDICARE, OTHER, SELFPAY ==
[2021-04-08 14:08] LABS: Hemoglobin A1C 8.2 % (<5.7)
== END 2021-04-08 03:15 | disposition home or self-care (01) ==
DX: E11.65 Type 2 diabetes mellitus with hyperglycemia (principal)
CPT/HCPCS: 36415; 83036

== ENCOUNTER 2021-04-24 02:16 | Outpatient (CLI) | payer MEDICARE, OTHER, SELFPAY ==
--- NOTE | 2021-04-24 14:00 | NS.NUTBLAN_ITS ---
Romy and her sister (twin) attended a diabetes self management education education. 5'2 171 lbs BMI 31 PMH: DM2 x 15 years, HTN, CKD, obesity Dm meds: 500 mg metformin BID, ozempic 7 mg qd, glipizide 5 mg am and 8-10 units of glargine pm. Uses a Jessica 2 CGM and reader Most recent A1C (04/08/21) 8.9% Diet Recall: no breakfast, crackers, fruit, nuts cheese, chicken breast, salad, vegetable. Exercise: sedentary. 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 Romy has uncontrolled diabets in view of recent A1C, however, just started glargine this week. Reports blood sugars mostly < 200 mg/dl. Session today focused on how to follow a balanced diet rich in complex carbs, lean protein, non starchy vegetables and healthy fats. Educated Romy and her sister (also has T2) how to count carbs and importance of eating 3 meals daily. Also, identified ways to exercise a minimum of 30 minutes per day and to aim for 10% wieght loss. . Romy and Sister are willing to walk 1 mile daily outdoors or at [facility]. Reviewed sick day strategies for hypo and hyper glycemia. Encouraged Romy to bring in her CGM reader for data down load. next week. Explained how reader needs to be within 20 feet of her sensor to collect data. Romy reports going to [place] over winter. Follow up appt. scheduled for 07/29/21 at 1 pm.
== END 2021-04-24 02:17 | disposition home or self-care (01) ==
PROVIDERS: Visit Provider Dietitian, Registered
DX: E11.65 Type 2 diabetes mellitus with hyperglycemia (principal); Z71.3 Dietary counseling and surveillance; E11.22 Type 2 diabetes mellitus with diabetic chronic kidney disease; N18.9 Chronic kidney disease, unspecified; E66.9 Obesity, unspecified; Z79.84 Long term (current) use of oral hypoglycemic drugs; Z79.4 Long term (current) use of insulin
CPT/HCPCS: 97802

== ENCOUNTER → 2021-05-05 14:15 | Outpatient (BNVA) | payer MEDICARE, OTHER, SELFPAY | PROVIDERS: Visit Provider Nurse Practitioner Gerontology | DX: N20.0 Calculus of kidney (principal) | CPT/HCPCS: 99213 ==

== ENCOUNTER 2021-07-28 04:55 | Outpatient (CLI) | payer MEDICARE, OTHER, SELFPAY ==
[2021-07-28 12:36] LABS: Hemoglobin A1C 8.1 % (<5.7)
[2021-07-28 12:44] LABS: ALT 24 U/L (14-59); AST 14 U/L (15-37); Albumin 3.6 g/dL (3.4-5.0); Alkaline Phosphatase 56 U/L (46-116); Anion Gap 8.5 mmol/L (3-11); BUN 25 mg/dL (7-18); Bilirubin, Total 0.6 mg/dL (0.2-1.0); CO2 26.5 mmol/L (21.0-32.0); CREATININE 1.3 mg/dL (0.55-1.02); Calcium 8.8 mg/dL (8.5-10.1); Calculated LDL 113 mg/dL (<100); Chloride 112 mmol/L (98-107); Cholesterol 193 mg/dL (<200); Estimated GFR 41.11 (mL/min/1.73m2); Glucose 154 mg/dL (74-106); HDL Cholesterol 62 mg/dL (40-60); Potassium 4.3 mmol/L (3.5-5.1); Sodium 147 mmol/L (136-145); Total Protein 6.5 g/dL (6.4-8.2); Triglyceride 93 mg/dL (<150)
== END 2021-07-28 04:56 | disposition home or self-care (01) ==
DX: I10 Essential (primary) hypertension (principal); E78.5 Hyperlipidemia, unspecified; E11.65 Type 2 diabetes mellitus with hyperglycemia
CPT/HCPCS: 36415; 80053; 80061; 83036

== ENCOUNTER 2021-07-30 04:34 | Outpatient (CLI) | payer MEDICARE, OTHER, SELFPAY | END 2021-07-30 04:35 | disposition home or self-care (01) | LOC: LBO 04:34 ==

== ENCOUNTER 2021-09-20 10:17 | Emergency (ER) | payer MEDICARE, OTHER, SELFPAY ==
[2021-09-20 10:28] VITALS: BP 193/79; PULSE 63; RESP 18; TEMP 37.3; O2SAT 98
--- NOTE | 2021-09-20 10:45 | DI.RAD_ITS ---
Exam(s) XR SHOULDER RT COMPLETE 2+V EXAM: XR SHOULDER RT COMPLETE 2+V CLINICAL HISTORY: Fall, R/O Fx. TECHNIQUE: 2D digital imaging was performed. Five views. COMPARISON: CR LEFT SHOULDER COMPLETE from 10/28/2015 CR LEFT SHOULDER COMPLETE from 11/15/2015 CR LEFT SHOULDER COMPLETE from 12/12/2015 CR CERV SP.WITH OBL OR FLEX/EXT from 05/31/2017 FINDINGS: BONES: No acute fracture is present. No bony destructive lesion is seen. Visualized right ribs show no evidence of fracture. JOINTS: There is mild widening of the AC joint. The distal clavicle projects mildly superior to the acromion. The coracoclavicular distance is normal. The acromial humeral distance is normal. SOFT TISSUE: Normal. The visualized portions of the right lung appear clear. IMPRESSION: Mild widening of the acromioclavicular joint consistent with mild acromioclavicular joint separation. DATA REPOSITORY: RADIATION DOSE DELIVERED:
--- NOTE | 2021-09-20 11:03 | W.ED.GENAD ---
Discharge Plan Disposition Patient Disposition: HOME Condition: Stable Discharge Details Clinical Impression: Separation of right acromioclavicular joint, type 1, Fall (on) (from) other stairs and steps, initial encounter Primary Care Provider: Mona Bowden ED Provider: Lauren Rajan Home Meds and New Rx's Prescriptions: Continued pravastatin 40 mg tablet 40 mg PO DAILY Qty: 90 3RF lisinopril 20 mg tablet 20 mg PO DAILY Qty: 90 3RF insulin glargine 100 unit/mL (3 mL) insulin pen 5 - 10 unit subcut BID Qty: 15 3RF Rx Instructions: Administer 10units in the AM and 5units at bedtime (DME) FreeStyle Jessica 14 Day Sensor Kit See Dose Instructions .ROUTE .MEDSUPPLY Qty: 6 11RF Hold Instructions: Home Medication placed on hold at Doctor's office Dose Instruction: As directed Rx Instructions: Dx E11.65 - glucose screening - insulin BID polyethylene glycol 3350 [Miralax] 17 gram/dose powder 17 g PO DAILY Qty: 510 2RF magnesium oxide 420 mg tablet 420 mg PO DAILY PRN multivitamin [Once Daily] 1 EACH tablet 1 ea PO DAILY (DME) FreeStyle Jessica 14 Day [place] Misc See Dose Instructions .ROUTE .MEDSUPPLY Qty: 1 0RF Hold Instructions: Home Medication placed on hold at Doctor's office Dose Instruction: As directed Rx Instructions: Dx E11.65 - glucose screening - pt. request/ BID screens (DME) lancets [BD Ultra Fine Lancets] 33 gauge misc See Dose Instructions .ROUTE .MEDSUPPLY Qty: 100 3RF Dose Instruction: DX E11.9- QD & PRN glucose monitoring Rx Instructions: DX E11.9- BID glucose monitoring (DME) blood-glucose meter [FreeStyle Lite Meter] Kit See Rx Instructions .ROUTE .MEDSUPPLY Qty: 1 0RF Hold Instructions: Home Medication placed on hold at Doctor's office Rx Instructions: E11.65 BID testing (DME) FreeStyle Test Strip See Dose Instructions .ROUTE .MEDSUPPLY Qty: 200 3RF Hold Instructions: Home Medication placed on hold at Doctor's office Dose Instruction: As directed Rx Instructions: For Freestyle Lite Meter -BID Testing Dx E11.65 (DME) pen needle, diabetic [BD Ultra-Fine Mini Pen Needle] 31 gauge x 3/16 needle See Rx Instructions .ROUTE .MEDSUPPLY Qty: 100 3RF Rx Instructions: Insulin administration QD (DME) Dexcom G6 Direct Support Specialist Misc See Rx Instructions .ROUTE .MEDSUPPLY Qty: 1 0RF Rx Instructions: As directed - Dx E11.65 (DME) Dexcom G6 Transmitter Device See Rx Instructions .ROUTE .MEDSUPPLY Qty: 1 3RF Rx Instructions: As directed - Dx E11.95 (DME) Dexcom G6 Sensor Device See Rx Instructions .ROUTE .MEDSUPPLY Qty: 3 11RF Rx Instructions: As directed-Dx E11.65 semaglutide 7 mg tablet 7 mg PO DAILY Qty: 90 3RF metformin 500 mg tablet 500 mg PO BID Qty: 180 3RF glipizide 5 mg tablet 5 mg PO DAILY Qty: 90 2RF levothyroxine [Synthroid] 88 mcg tablet 88 mcg PO DAILY Qty: 90 3RF acetaminophen [Tylenol] 325 MG tablet 650 mg PO Q4H PRN PRN0RF Discharge Instructions Instructions: Acromioclavicular Separation (ED), Fall Prevention (ED) Additional Instructions: Rest ice compression elevation. He has a sling as needed for him for when up and about. Apply ice every 20 minutes on and off for the first few days. Please take Tylenol with food every 4-6 hours as needed for pain and swelling. Advance to light stretches and light range of motion as tolerated. At this time there is no evidence of fracture to your rib cage or shoulder. However we were unable to evaluate your lower spine. Please return to the ER for any loss of bowel or bladder control, numbness or tingling, feeling as if your neck is unstable or any worsening pain or concerns. If after 4 to 6 weeks you are still having problems or pain please follow-up with orthopedics. Referrals: Avinash Spangler MD [ [facility] STAFF PHYSICIAN] - Return if symptoms worsen Discharge Data Discharge Date/Time-TO BE ENTERED AT DEPARTURE: 09/20/21 13:06 Medical Decision Making 55-year-old female presents to the ER with chief complaint of mechanical fall which occurred approximately an hour prior to arrival. Patient reports that she tripped on a rug and fell approximately 3 steps landing on her right side off of her patio. She was helped up by her family member who accompanies her to the department today. She is complaining of right shoulder pain, right chest wall pain and some lower lumbar tenderness. She reports she may have hit her head denies any loss of consciousness. She does complain of stiffness. Denies any shortness of breath difficulty breathing no abdominal pain no pelvis lower extremity pain. She is alert and oriented x4. She is ambulatory in department. Does have a past medical history of insulin-dependent diabetes mellitus, hyperlipidemia, hypothyroidism, obesity, chronic kidney disease, pyelonephritis, GERD, hypertension Shoulder x-ray, L-spine x-ray rib series chest x-ray Percocet and Zofran ordered. Ice pack given. 1155: Informed by x-ray staff that patient is refusing the L-spine x-ray due to shoulder pain. 1216: Consulted with orthopedic surgeon on-call Dr. Spangler who was able to personally view the images. He agrees with [facility] read that is a type I AC joint separation. He recommends a sling. I did discuss home care and follow-up care with patient who verbalizes understanding. I did discuss if patient continues to have problems after 3 to 4 weeks may follow-up with Ortho if needed. Discussed red flags such as if her neck feels unstable any numbness tingling loss of bowel or bladder control or any new or worsening concerns to return to the emergency department. Discussed ice and Tylenol with her RICE procedures. This text was generated using [employer] dictation system, please disregard any oddities of phrase or misspellings. Medical Records Medical records reviewed: Yes I reviewed the patient's medical records. Imaging Data Radiologic Study: Radiologist's impression: Imaging protocol: Radiologic exam of the Right shoulder. Views: 2 or more views. COMPARISON: US RIGHT EXTREMITY ULTRASOUND 09/09/2017 3:02 PM FINDINGS: Bones/joints: The clavicle is mildly elevated with respect to the acromion. This may represent acromioclavicular disassociation.. The glenohumeral joint is aligned. No acute fracture is identified. Soft tissues: Normal. IMPRESSION: 1. The clavicle is mildly elevated with respect to the acromion. This may represent acromioclavicular disassociation.. 2. No acute fracture is identified. Right Rib series with PA chest FINDINGS: Lungs: Unremarkable. No consolidation. Pleural spaces: Unremarkable. No pleural effusion. No pneumothorax. Heart/Mediastinum: Unremarkable. No cardiomegaly. Bones/joints: Unremarkable. IMPRESSION: No acute findings. HPI General Mode of arrival: ambulatory. Date/Time Provider Initiated Documentation: 09/20/21 10:48. Limitations to Documentation: no limitations. Information obtained by: patient. HPI Narrative: 55-year-old female presents to the ER with chief complaint of mechanical fall which occurred approximately an hour prior to arrival. Patient reports that she tripped on a rug and fell approximately 3 steps landing on her right side off of her patio. She was helped up by her family member who accompanies her to the department today. She is complaining of right shoulder pain, right chest wall pain and some lower lumbar tenderness. She reports she may have hit her head denies any loss of consciousness. She does complain of stiffness. Denies any shortness of breath difficulty breathing no abdominal pain no pelvis lower extremity pain. She is alert and oriented x4. She is ambulatory in department. Does have a past medical history of insulin-dependent diabetes mellitus, hyperlipidemia, hypothyroidism, obesity, chronic kidney disease, pyelonephritis, GERD, hypertension. Related Data Home Medications Medication Instructions Recorded Confirmed multivitamin (Once Daily tablet) 1 ea PO DAILY 09/22/12 09/20/21 acetaminophen 325 mg tablet 650 mg PO Q4H PRN PRN 11/05/15 09/20/21 (Tylenol) flash glucose scanning reader #1 ea 08/23/19 09/20/21 (FreeStyle Jessica 14 Day [place]) lancets 33 gauge (BD Ultra Fine #100 ea 01/12/21 09/20/21 Lancets) magnesium oxide 420 mg tablet 420 mg PO DAILY PRN 01/13/21 09/20/21 blood sugar diagnostic (FreeStyle #200 ea 01/14/21 09/20/21 Test strips) blood-glucose meter (FreeStyle #1 ea 01/14/21 09/20/21 Lite Meter kit) polyethylene glycol 3350 17 17 g PO DAILY #510 grams 04/14/21 09/20/21 gram/dose oral powder (Miralax) pen needle, diabetic 31 gauge x #100 ea 05/27/21 09/20/21/16 (BD Ultra-Fine Mini Pen Needle) blood-glucose meter,continuous #1 ea 06/05/21 09/20/21 (Dexcom G6 Direct Support Specialist misc) blood-glucose sensor (Dexcom G6 #3 ea 06/05/21 09/20/21 Sensor device) blood-glucose transmitter (Dexcom #1 ea 06/05/21 09/20/21 G6 Transmitter device) semaglutide 7 mg tablet 7 mg PO DAILY #90 tabs 06/09/21 09/20/21 metformin 500 mg tablet 500 mg PO BID #180 tab-caps 07/11/21 09/20/21 glipizide 5 mg tablet 5 mg PO DAILY #90 tabs 07/18/21 09/20/21 flash glucose sensor (FreeStyle #6 ea 07/29/21 09/20/21 Jessica 14 Day Sensor kit) insulin glargine 100 unit/mL (3 5 - 10 unit (0.05 - 0.1 mL) subcut 07/29/21 09/20/21 mL) subcutaneous pen BID #15 mL lisinopril 20 mg tablet 20 mg PO DAILY #90 tab-caps 07/29/21 09/20/21 pravastatin 40 mg tablet 40 mg PO DAILY #90 tab-caps 07/29/21 09/20/21 Synthroid 88 mcg tablet 88 mcg PO DAILY replaces 08/01/21 09/20/21 (levothyroxine) Levothyroxine - brand per insurance #90 tabs Previous Rx's Medication Instructions Recorded acetaminophen 325 mg tablet 650 mg PO Q4H PRN PRN 11/05/15 (Tylenol) flash glucose scanning reader #1 ea 08/23/19 (FreeStyle Jessica 14 Day [place]) lancets 33 gauge (BD Ultra Fine #100 ea 01/12/21 Lancets) blood sugar diagnostic (FreeStyle #200 ea 01/14/21 Test strips) blood-glucose meter (FreeStyle #1 ea 01/14/21 Lite Meter kit) polyethylene glycol 3350 17 17 g PO DAILY #510 grams 04/14/21 gram/dose oral powder (Miralax) pen needle, diabetic 31 gauge x #100 ea 05/27/2106/18 (BD Ultra-Fine Mini Pen Needle) blood-glucose meter,continuous #1 ea 06/05/21 (Dexcom G6 Direct Support Specialist misc) blood-glucose sensor (Dexcom G6 #3 ea 06/05/21 Sensor device) blood-glucose transmitter (Dexcom #1 ea 06/05/21 G6 Transmitter device) semaglutide 7 mg tablet 7 mg PO DAILY #90 tabs 06/09/21 metformin 500 mg tablet 500 mg PO BID #180 tab-caps 07/11/21 glipizide 5 mg tablet 5 mg PO DAILY #90 tabs 07/18/21 flash glucose sensor (FreeStyle #6 ea 07/29/21 Jessica 14 Day Sensor kit) insulin glargine 100 unit/mL (3 5 - 10 unit (0.05 - 0.1 mL) subcut 07/29/21 mL) subcutaneous pen BID #15 mL lisinopril 20 mg tablet 20 mg PO DAILY #90 tab-caps 07/29/21 pravastatin 40 mg tablet 40 mg PO DAILY #90 tab-caps 07/29/21 Synthroid 88 mcg tablet 88 mcg PO DAILY replaces 08/01/21 (levothyroxine) Levothyroxine - brand per insurance #90 tabs Allergies Allergy/AdvReac Type Severity Reaction Status Date / Time erythromycin base AdvReac Unknown DIARRHEA Verified 09/20/21 10:30 General Stated Complaint: Trauma NICK: 3 Review of Systems All systems reviewed & are unremarkable except as noted in HPI and below Constitutional Constitutional: Reports as per HPI and Denies headache(s) ENT Ears, Nose, Mouth, and Throat: Denies headache(s) Cardiovascular Cardiovascular: Reports chest pain at rest (Right side chest wall pain), Denies diaphoresis, Denies syncope, Denies pedal edema, Denies irregular heart rhythm and Denies dyspnea Respiratory Respiratory: Denies dyspnea Musculoskeletal Musculoskeletal: Reports as per HPI, Reports back pain, Reports arthralgias (Right Shoulder), Reports joint swelling, Reports limited range of motion and Reports stiffness Neurologic Neurologic: Denies syncope and Denies headache(s) PFSH All Active Problems (Updated 09/20/21 @ 12:53 by Lauren Rajan NP) Separation of right acromioclavicular joint, type 1 (Acute) Fall (on) (from) other stairs and steps, initial encounter (Acute) Hypertension (Chronic) DM (diabetes mellitus), type 2, uncontrolled (Chronic) GERD (gastroesophageal reflux disease) (Chronic) Hyperlipidemia (Chronic 09/22/12) Hypothyroidism (Chronic 09/22/12) Obesity (Chronic 09/22/12) Constipation (Chronic) Chronic kidney disease (Chronic) Vaginitis (Acute) Kidney stone (Chronic) Decreased renal function (Chronic) Medical History (Updated 09/20/21 @ 12:53 by Lauren Rajan NP) Acute lateral meniscus tear of right knee (08/26/15) meniscectomy 11/2015 Calculus of kidney and ureter (10/04/12) Left ureteroscopy with stone removal by Dr. Gilbert 10/04/2012. Closed fracture of proximal end of left humerus (~12/2015) History of nephrolithotomy with removal of calculi Knee pain, right (09/21/13) Pap smear vag w ASC-US (03/04/02) neg. HPV Surgical History Kidney Stone Extraction (~10/2012) Family History Mother Essential hypertension Heart disease Father , 64 Diabetes Essential hypertension Heart disease Sister Essential hypertension Hyperlipidemia Sister Diabetes Sister Diabetes Sister No problems noted. Daughter No problems noted. Social History (Updated 07/30/21 @ 08:50 by Melissa Buitrago) Smoking/Tobacco Use Status: Never Second Hand Exposure: Yes Smoking risk assessment performed?: Yes Alcohol Intake: current Alcohol Intake frequency: holidays/special occasions only Alcohol type: hard liquor Drug use: Never Substance use type: does not use Counseling given: No Counseling provided: none Caregiver/Support person: No Household members: family and none Housing: house Communication Needs: Corrective Lenses Do you need help understanding health information?: Never Pets and animals: Yes Pets and animals: cat(s) Sexually active: No Do you think of yourself as: straight/heterosexual Current gender identity: female What is your relationship status?: How often do you talk on the phone with friends or family?: three or more times per week How often do you get together with friends or relatives?: once per week How often do you attend sabianism or restoration services?: 4 or more times per year Do you belong to any clubs or organized social groups?: no Panel score (0-1 are the most socially isolated patients): 2 What type of physical activity do you participate in: walking and regular exercise Duration: < 15 minutes/day Frequency: 1-2 times per week Alexandrea/Samaritan: Synagogue Special alexandrea needs: No Seatbelt use: always Helmet use: No Drive intox or ride w/intox van driver helper: No Do you feel safe at home: Yes Do you feel safe in your relationship?: Yes Exam Narrative Exam Narrative: Upon entering room patient is sitting in chair which she reports is comfortable for her. General: Well Developed, Awake and Alert, conversant. Skin: Warm and Dry HEENT: Head: No palpable deformities, Normocephalic Eyes: Pupils PERRLA, EOM's intact. No periorbital eccymosis or step off Ears: Canal patent. Tympanic membranes are clear . No marcial's sign, no hemptympanum. Nose/Face: Atraumatic. Facial bones nontender to palpation and stable with manipulation. Mouth/Throat: No intraoral trauma. Teeth and mandible are intact. Neck: No midline tenderness, no step off, no deformity to palpation of C-spine. Trachea midline. Chest: No surface trauma. Tenderness with palpation to the right anterior chest wall no obvious crepitus or step-off palpated. Lungs clear to ausculatation bilaterally. Heart: RRR, no rubs, murmurs or gallop. Abdomen: No abrasions, ecchymosis, or surface trauma. Nondistended. Nontender to palpation no guarding, rebound, or rigidity. Pelvis: Nontender to palpation and stable to compression. Femoral pulses strong and equal Extremities: Right shoulder swelling anteriorly, tenderness with palpation, very superficial abrasion noted to the right elbow full range of motion no crepitus no step-off, no wrist pain no hand pain. No forearm pain. No surface trauma. Sensation intact. Peripheral pulses intact and equal. Neuro: ANO x4, GCS 15, cranial nerves II through XII intact. Motor and sensory exam nonfocal. Reflexes are symmetric. Course Vital Signs Vital signs: Vital Signs Temperature 37.3 C 09/20/21 10:28 Pulse 63 09/20/21 10:28 Respiratory Rate 18 09/20/21 10:28 Blood Pressure 193/79 H 09/20/21 10:28 Pulse Oximetry 98 09/20/21 10:28 Temperature 37.3 C 09/20/21 10:28 Temperature Source Temporal Artery Scan 09/20/21 10:28 Pulse 63 09/20/21 10:28 Respiratory Rate 18 09/20/21 10:28 Respiratory Effort Non-Labored 09/20/21 10:31 Blood Pressure 193/79 H 09/20/21 10:28 Blood Pressure Position Sitting 09/20/21 10:28 Pulse Oximetry 98 09/20/21 10:28 Oxygen Delivery Method Room Air 09/20/21 10:28 Oxygen Flow Rate 0 09/20/21 10:28 Pain Level 8 09/20/21 10:28
[2021-09-20] MEDS: Ondansetron O.D.T. 4 MG TABEF PO (11:09)
[2021-09-20] MEDS: oxyCODONE 5 mg/Acetaminophen 325 mg TAB 1 TAB PO (11:09)
[2021-09-20 11:19] VITALS: BP 180/76; PULSE 64; RESP 18; TEMP 37.1; O2SAT 98
--- NOTE | 2021-09-20 11:50 | DI.RAD_ITS ---
Exam(s) XR RIBS RT PA CHEST 3V EXAM: XR RIBS RT PA CHEST 3V CLINICAL HISTORY: Fall, Right Rib paIN TECHNIQUE: 2D digital imaging was performed. PA chest and two views of the right ribs COMPARISON: CR LEFT SHOULDER COMPLETE from 10/01/2015 FINDINGS: HEART: Normal. Aorta tortuous. PULMONARY VASCULATURE: Normal. LUNGS: Clear. PLEURAL SPACE: No pleural effusion or pneumothorax. Right RIBS: Question nondisplaced fractures lateral 5th through 7th ribs. IMPRESSION: 1. No acute pulmonary findings. 2. Question nondisplaced fractures right 5th through 7th ribs. DATA REPOSITORY: RADIATION DOSE DELIVERED:
--- NOTE | 2021-09-20 12:11 | DI.VRAD_ITS ---
PROCEDURE INFORMATION: Exam: XR Right Shoulder Exam date and time: 09/20/2021 11:43 AM Age: 65 years old Clinical indication: Injury or trauma; Fall; Blunt trauma (contusions or hematomas); Shoulder; Right; Injury date: 09/20/21 TECHNIQUE: Imaging protocol: Radiologic exam of the Right shoulder. Views: 2 or more views. COMPARISON: US RIGHT EXTREMITY ULTRASOUND 09/09/2017 3:02 PM FINDINGS: Bones/joints: The clavicle is mildly elevated with respect to the acromion. This may represent acromioclavicular disassociation.. The glenohumeral joint is aligned. No acute fracture is identified. Soft tissues: Normal. IMPRESSION: 1. The clavicle is mildly elevated with respect to the acromion. This may represent acromioclavicular disassociation.. 2. No acute fracture is identified. Dictated and Authenticated by: Vicky Srivastava MD. Ordering:DON Aguilar MD
--- NOTE | 2021-09-20 12:12 | DI.VRAD_ITS ---
PROCEDURE INFORMATION: Exam: XR Right Ribs Exam date and time: 09/20/2021 11:48 AM Age: 65 years old Clinical indication: Injury or trauma; Fall; Blunt trauma (contusions or hematomas); Rib area TECHNIQUE: Imaging protocol: Radiologic exam of the Right ribs. Views: 2 views. COMPARISON: CR XR SHOULDER RT COMPLETE 2+V 09/20/2021 11:43 AM FINDINGS: Bones/joints: Normal. Soft tissues: Normal. IMPRESSION: No acute findings. PROCEDURE INFORMATION: Exam: XR Chest Exam date and time: 09/20/2021 11:48 AM Age: 65 years old Clinical indication: Injury or trauma; Fall; Blunt trauma (contusions or hematomas); Rib area TECHNIQUE: Imaging protocol: Radiologic exam of the chest. Views: 1 view. COMPARISON: CR XR SHOULDER RT COMPLETE 2+V 09/20/2021 11:43 AM FINDINGS: Lungs: Unremarkable. No consolidation. Pleural spaces: Unremarkable. No pleural effusion. No pneumothorax. Heart/Mediastinum: Unremarkable. No cardiomegaly. Bones/joints: Unremarkable. IMPRESSION: No acute findings. Dictated and Authenticated by: Vicky Srivastava MD. Ordering:DON Aguilar MD
[2021-09-20 13:07] VITALS: BP 180/76; PULSE 64; RESP 18; TEMP 37.1; O2SAT 98
== END 2021-09-20 13:06 | disposition home or self-care (01) ==
PROVIDERS: Emergency Provider Registered Nurse Emergency
DX: S43.101A Unspecified dislocation of right acromioclavicular joint, initial encounter (principal); R07.89 Other chest pain; M54.50 Low back pain, unspecified; W10.8XXA Fall (on) (from) other stairs and steps, initial encounter
CPT/HCPCS: 99284; 71046; 71100; 73030; 99283

== ENCOUNTER → 2021-10-21 01:05 | Outpatient (CLI) | payer MEDICARE, OTHER, SELFPAY ==
--- NOTE | 2021-10-21 07:45 | DI.US_ITS ---
Exam(s) US LOWER EXTREMITY VENOUS RT EXAM: US LOWER EXTREMITY VENOUS RT CLINICAL HISTORY: leg edema , new onset, ? DVT, R60.9 TECHNIQUE: Grayscale, color, and doppler imaging of the deep venous system of the right lower extrem ity was performed. COMPARISON: US US RENAL from 08/12/2020 FINDINGS: There is no evidence of intraluminal thrombus and there is normal compression and augmentation demons trated within the common femoral vein, femoral vein, and popliteal vein. In the ipsilateral calf the interrogated veins also exhibit normal compression/ augmentation properti es. The ipsilateral saphenofemoral junction is patent. IMPRESSION: 1. No evidence of DVT in the right lower extremity. DATA REPOSITORY:
== END ==
PROVIDERS: Visit Provider Family Medicine
DX: R60.0 Localized edema (principal)
CPT/HCPCS: 93971

== ENCOUNTER → 2021-10-29 14:52 | Outpatient (BNVA) | payer MEDICARE, OTHER, SELFPAY | PROVIDERS: Visit Provider Nurse Practitioner Gerontology | DX: R39.89 Other symptoms and signs involving the genitourinary system (principal); N20.0 Calculus of kidney | CPT/HCPCS: 51798; 99213 ==

== ENCOUNTER 2021-11-04 03:07 | Outpatient (CLI) | payer MEDICARE, OTHER, SELFPAY ==
[2021-11-04 10:18] LABS: Hemoglobin A1C 7.6 % (<5.7)
[2021-11-04 10:32] LABS: Anion Gap 8.6 mmol/L (3-11); BUN 23 mg/dL (7-18); CO2 26.4 mmol/L (21.0-32.0); CREATININE 1.4 mg/dL (0.55-1.02); Calcium 9.4 mg/dL (8.5-10.1); Chloride 106 mmol/L (98-107); Estimated GFR 37.74 (mL/min/1.73m2); Glucose 160 mg/dL (74-106); Potassium 4.2 mmol/L (3.5-5.1); Sodium 141 mmol/L (136-145)
== END 2021-11-04 03:08 | disposition home or self-care (01) ==
LOC: LBO 03:07
DX: E11.65 Type 2 diabetes mellitus with hyperglycemia (principal); N18.9 Chronic kidney disease, unspecified
CPT/HCPCS: 36415; 80048; 83036

== ENCOUNTER 2021-12-25 14:14 | Outpatient (REF) | payer MEDICARE, SELFPAY ==
[2021-12-25 21:05] LABS: Abs Immature Grans 0.01 10^3/uL (0.0-0.06); Absolute Basophil Count 0.04 10^3/uL (0.0-0.2); Absolute Eosinophil Count 0.34 10^3/uL (0.0-0.7); Absolute Lymphocyte Count 2.44 10^3/uL (1.2-3.4); Absolute Monocyte Count 0.59 10^3/uL (0.1-0.8); Absolute Neutrophil Count 2.95 10^3/uL (1.2-6.7); Basophils % 0.6; Eosinophils % 5.3; HCT 37.3 % (36.0-46.0); HGB 12.2 g/dL (11.2-15.7); Immature Grans % 0.2; Lymphocytes % 38.3; MCH 28.4 pg (27.0-33.0); MCHC 32.7 % (32.0-36.0); MCV 87 fL (80-95); MPV 10.6 fL (8.0-11.0); Monocytes % 9.3; Neutrophils % 46.3; Platelet Count 296 10^3/uL (130-400); RDW 13.8 % (11.7-14.6); WBC 6.37 10^3/uL (4.4-10.8)
[2021-12-25 21:10] LABS: Anion Gap 8.1 mmol/L (3-11); BUN 21 mg/dL (7-18); CO2 28.9 mmol/L (21.0-32.0); CREATININE 1.3 mg/dL (0.55-1.02); Calcium 9.6 mg/dL (8.5-10.1); Chloride 108 mmol/L (98-107); Estimated GFR 45.35 (mL/min/1.73m2); Glucose 137 mg/dL (74-106); Potassium 4.8 mmol/L (3.5-5.1); Sodium 145 mmol/L (136-145)
== END 2021-12-25 14:15 | disposition home or self-care (01) ==
LOC: LBN 14:14
PROVIDERS: PCP Family Medicine; Visit Provider Nurse Practitioner Family
DX: R53.83 Other fatigue (principal); Z01.30 Encounter for examination of blood pressure without abnormal findings
CPT/HCPCS: 80048; 85025

== ENCOUNTER → 2022-01-28 02:47 | Outpatient (CLI) | payer MEDICARE, OTHER, SELFPAY ==
--- NOTE | 2022-01-28 08:03 | DI.MAMMO_ITS ---
Exam(s) MAMMO SCREENING EXAM: MAMMO SCREENING CLINICAL HISTORY: screening,z12.39 TECHNIQUE: Mammograms were interpreted according to the usual protocol including computer analysis w [employer] CAD system, tomosynthesis and C-view imaging. COMPARISON: FINDINGS: The breasts are of moderate density with fairly symmetrical distribution of fibroglandular tissue. N o dominant mass or clumped microcalcification is identified in either breast. The current examinatio n is compared with previous examinations including June 2020 and there has been no gross interval ch jhony in appearance in comparison with the prior studies. IMPRESSION: No specific evidence of malignancy at this time. Routine screening examinations are suggested at yea rly intervals in this age group according to the ACS ACR guidelines. BI-RADS Category 1 - Negative Breast Density - Category B - Scattered areas of fibroglandular density
== END ==
DX: Z12.31 Encounter for screening mammogram for malignant neoplasm of breast (principal)
CPT/HCPCS: 77063; 77067

== ENCOUNTER 2022-02-17 03:58 | Outpatient (CLI) | payer MEDICARE, OTHER, SELFPAY ==
[2022-02-17 13:00] LABS: ALT 31 U/L (14-59); AST 20 U/L (15-37); Albumin 3.8 g/dL (3.4-5.0); Alkaline Phosphatase 52 U/L (46-116); Anion Gap 10.9 mmol/L (3-11); BUN 25 mg/dL (7-18); Bilirubin, Total 0.8 mg/dL (0.2-1.0); CO2 27.1 mmol/L (21.0-32.0); CREATININE 1.5 mg/dL (0.55-1.02); Calcium 9.4 mg/dL (8.5-10.1); Chloride 109 mmol/L (98-107); Glucose 113 mg/dL (74-106); Potassium 4.2 mmol/L (3.5-5.1); Sodium 147 mmol/L (136-145); Total Protein 7.4 g/dL (6.4-8.2)
[2022-02-17 14:33] LABS: Hemoglobin A1C 8.5 % (<5.7)
== END 2022-02-17 03:59 | disposition home or self-care (01) ==
LOC: LOS 03:58
PROVIDERS: PCP Family Medicine; Visit Provider Family Medicine
DX: E11.65 Type 2 diabetes mellitus with hyperglycemia (principal); I10 Essential (primary) hypertension
CPT/HCPCS: 36415; 80053; 83036

== ENCOUNTER 2022-04-17 00:12 | Outpatient (CLI) | payer MEDICARE, OTHER, SELFPAY ==
--- NOTE | 2022-04-17 08:15 | DI.DEXA_ITS ---
Exam(s) XR DEXA BONE DENSITY W/WO MARBIN EXAM: XR DEXA BONE DENSITY W/WO MARBIN CLINICAL HISTORY: OSTEOPOROSIS, M81.0 TECHNIQUE: COMPARISON: No exams were available for comparison FINDINGS: Lateral Spine Image: Unremarkable. No compression deformities identified. Left hip: Total T-Score: -0.8 Total Z-Score: 0.5 T- and Z-scores: Within normal limits. Lumbar Spine: Total T-Score: -0.8 Total Z-Score: 1.0 T- and Z-scores: Within normal limits. IMPRESSION: No evidence of osteoporosis.
== END 2022-04-17 00:32 ==
PROVIDERS: PCP Family Medicine; Visit Provider Family Medicine
DX: M81.0 Age-related osteoporosis without current pathological fracture (principal); Z13.820 Encounter for screening for osteoporosis
CPT/HCPCS: 77080

== ENCOUNTER 2022-06-23 02:47 | Outpatient (CLI) | payer MEDICARE, OTHER, SELFPAY ==
[2022-06-23 13:45] LABS: ALT 37 U/L (14-59); AST 22 U/L (15-37); Albumin 3.7 g/dL (3.4-5.0); Alkaline Phosphatase 65 U/L (46-116); Anion Gap 6.2 mmol/L (3-11); BUN 24 mg/dL (7-18); Bilirubin, Total 0.7 mg/dL (0.2-1.0); CO2 29.8 mmol/L (21.0-32.0); CREATININE 1.6 mg/dL (0.55-1.02); Calcium 9.8 mg/dL (8.5-10.1); Calculated LDL 108 mg/dL (<100); Chloride 108 mmol/L (98-107); Cholesterol 202 mg/dL (<200); Estimated GFR 35.35 (mL/min/1.73m2); Glucose 138 mg/dL (74-106); HDL Cholesterol 74 mg/dL (40-60); Potassium 4.2 mmol/L (3.5-5.1); Sodium 144 mmol/L (136-145); Total Protein 7.4 g/dL (6.4-8.2); Triglyceride 100 mg/dL (<150)
[2022-06-23 14:03] LABS: Hemoglobin A1C 10.2 % (<5.7)
== END 2022-06-23 02:48 | disposition home or self-care (01) ==
LOC: LOS 02:47
PROVIDERS: PCP Family Medicine; Visit Provider Family Medicine
DX: I10 Essential (primary) hypertension (principal); E78.5 Hyperlipidemia, unspecified; E03.9 Hypothyroidism, unspecified; E11.65 Type 2 diabetes mellitus with hyperglycemia
CPT/HCPCS: 36415; 80053; 80061; 82043; 82570; 83036; 84443

== ENCOUNTER 2022-06-29 15:40 | Outpatient (REF) | payer MEDICARE, OTHER, SELFPAY ==
[2022-06-29 17:43] LABS: Microalb ug/mg Crea 8.6 ug/mg Cr
== END 2022-06-29 15:41 | disposition home or self-care (01) ==
LOC: LBN 15:40
PROVIDERS: PCP Family Medicine; Visit Provider Family Medicine
DX: E11.65 Type 2 diabetes mellitus with hyperglycemia (principal)
CPT/HCPCS: 82043; 82570

== ENCOUNTER 2022-08-14 01:18 | Outpatient (CLI) | payer MEDICARE, OTHER, SELFPAY ==
[2022-08-14 13:07] LABS: ALT 33 U/L (14-59); AST 18 U/L (15-37); Albumin 3.7 g/dL (3.4-5.0); Alkaline Phosphatase 51 U/L (46-116); Anion Gap 12.8 mmol/L (3-11); BUN 30 mg/dL (7-18); Bilirubin, Total 0.7 mg/dL (0.2-1.0); CO2 26.2 mmol/L (21.0-32.0); CREATININE 1.8 mg/dL (0.55-1.02); Calcium 9.1 mg/dL (8.5-10.1); Chloride 109 mmol/L (98-107); Estimated GFR 30.69 (mL/min/1.73m2); Glucose 80 mg/dL (74-106); Potassium 3.6 mmol/L (3.5-5.1); Sodium 148 mmol/L (136-145); Total Protein 7.1 g/dL (6.4-8.2)
[2022-08-14 13:10] LABS: Hemoglobin A1C 9.1 % (<5.7)
== END 2022-08-14 01:19 | disposition home or self-care (01) ==
LOC: LOS 01:18
PROVIDERS: PCP Family Medicine; Visit Provider Family Medicine
DX: I10 Essential (primary) hypertension (principal); E11.65 Type 2 diabetes mellitus with hyperglycemia
CPT/HCPCS: 36415; 80053; 83036

== ENCOUNTER → 2022-10-29 15:27 | Outpatient (BNVA) | payer MEDICARE, OTHER, SELFPAY | PROVIDERS: PCP Family Medicine; Visit Provider Nurse Practitioner Gerontology | DX: N20.0 Calculus of kidney (principal) | CPT/HCPCS: 51798; 99212 ==

== ENCOUNTER 2022-12-16 03:24 | Outpatient (CLI) | payer MEDICARE, OTHER, SELFPAY | END 2022-12-16 03:25 | disposition home or self-care (01) | LOC: LOS 03:24 | PROVIDERS: PCP Family Medicine; Visit Provider Family Medicine | DX: E11.9 Type 2 diabetes mellitus without complications (principal) | CPT/HCPCS: 36415; 83036 ==

== ENCOUNTER 2023-01-19 02:39 | Outpatient (CLI) | payer MEDICARE, OTHER, SELFPAY ==
[2023-01-19 13:13] LABS: Anion Gap 12.8 mmol/L (3-11); BUN 32 mg/dL (7-18); CO2 23.2 mmol/L (21.0-32.0); CREATININE 1.9 mg/dL (0.55-1.02); Calcium 9.7 mg/dL (8.5-10.1); Chloride 106 mmol/L (98-107); Estimated GFR 28.58 (mL/min/1.73m2); Glucose 87 mg/dL (74-106); Potassium 4.1 mmol/L (3.5-5.1); Sodium 142 mmol/L (136-145)
== END 2023-01-19 02:40 | disposition home or self-care (01) ==
LOC: LOS 02:39
PROVIDERS: PCP Family Medicine; Visit Provider Family Medicine
DX: I10 Essential (primary) hypertension (principal); N18.9 Chronic kidney disease, unspecified; E11.9 Type 2 diabetes mellitus without complications; E78.5 Hyperlipidemia, unspecified
CPT/HCPCS: 36415; 80048

== ENCOUNTER 2023-02-22 04:36 | Outpatient (CLI) | payer MEDICARE, OTHER, SELFPAY ==
[2023-02-22 08:11] LABS: Anion Gap 8.4 mmol/L (3-11); BUN 34 mg/dL (7-18); CO2 26.6 mmol/L (21.0-32.0); CREATININE 1.8 mg/dL (0.55-1.02); Calcium 9.7 mg/dL (8.5-10.1); Chloride 107 mmol/L (98-107); Glucose 106 mg/dL (74-106); Potassium 3.6 mmol/L (3.5-5.1); Sodium 142 mmol/L (136-145)
== END 2023-02-22 04:37 | disposition home or self-care (01) ==
PROVIDERS: PCP Family Medicine; Visit Provider Family Medicine
DX: N18.32 Chronic kidney disease, stage 3b (principal); E11.9 Type 2 diabetes mellitus without complications; I10 Essential (primary) hypertension
CPT/HCPCS: 36415; 80048

== ENCOUNTER 2023-05-11 04:33 | Outpatient (CLI) | payer MEDICARE, OTHER, SELFPAY ==
[2023-05-11 12:41] LABS: Anion Gap 9.3 mmol/L (3-11); BUN 24 mg/dL (7-18); CO2 25.7 mmol/L (21.0-32.0); CREATININE 1.8 mg/dL (0.55-1.02); Calcium 9.4 mg/dL (8.5-10.1); Chloride 111 mmol/L (98-107); Glucose 125 mg/dL (74-106); Sodium 146 mmol/L (136-145)
== END 2023-05-11 04:34 | disposition home or self-care (01) ==
LOC: LOS 04:34
PROVIDERS: PCP Family Medicine; Visit Provider Family Medicine
DX: N18.30 Chronic kidney disease, stage 3 unspecified (principal); E11.9 Type 2 diabetes mellitus without complications; I10 Essential (primary) hypertension; E03.9 Hypothyroidism, unspecified; E78.5 Hyperlipidemia, unspecified
CPT/HCPCS: 36415; 80048

== ENCOUNTER 2023-05-25 05:03 | Outpatient (CLI) | payer MEDICARE, OTHER, SELFPAY ==
[2023-05-25 13:18] LABS: Hemoglobin A1C 6.9 % (<5.7)
== END 2023-05-25 05:04 | disposition home or self-care (01) ==
LOC: LBO 05:03
PROVIDERS: PCP Family Medicine; Visit Provider Family Medicine
DX: E11.65 Type 2 diabetes mellitus with hyperglycemia (principal); N18.32 Chronic kidney disease, stage 3b
CPT/HCPCS: 36415; 83036

== ENCOUNTER 2023-08-31 01:30 | Outpatient (CLI) | payer MEDICARE, OTHER, SELFPAY ==
[2023-08-31 15:29] LABS: ALT 31 U/L (14-59); AST 19 U/L (15-37); Albumin 3.7 g/dL (3.4-5.0); Alkaline Phosphatase 78 U/L (46-116); Anion Gap 10.5 mmol/L (3-11); BUN 37 mg/dL (7-18); Bilirubin, Total 0.8 mg/dL (0.2-1.0); CO2 25.5 mmol/L (21.0-32.0); CREATININE 1.7 mg/dL (0.55-1.02); Calcium 9.1 mg/dL (8.5-10.1); Chloride 109 mmol/L (98-107); Estimated GFR 32.66 (mL/min/1.73m2); Glucose 203 mg/dL (74-106); Potassium 4.6 mmol/L (3.5-5.1); Sodium 145 mmol/L (136-145); Total Protein 7.1 g/dL (6.4-8.2)
== END 2023-08-31 01:31 | disposition home or self-care (01) ==
LOC: LBO 01:30
PROVIDERS: PCP Family Medicine; Visit Provider Family Medicine
DX: E11.9 Type 2 diabetes mellitus without complications (principal); I10 Essential (primary) hypertension
CPT/HCPCS: 36415; 80053; 83036

== ENCOUNTER 2023-10-21 11:39 | Emergency (ER) | payer MEDICARE, OTHER, SELFPAY ==
[2023-10-21] VITALS (22 sets, daily range): BP systolic 116–154; BP diastolic 69–91; PULSE 59–88; RESP 10–22; TEMP 37.1; O2SAT 94–100
--- NOTE | 2023-10-21 11:30 | RT.EKG_ITS ---
APPROVED REPORT Exam: Resting ECG Reason for Exam: Dizziness Patient Location: E HR:69 bpm ECG Measurements Heart Rate 69 AXIS MN 146 P 61 QRSd 87 QRS 19 QT 393 T 49 QTc 421 Conclusion Sinus rhythm...normal P axis, V-rate 60- 99
--- NOTE | 2023-10-21 12:23 | ED.GENADUL_ITS ---
Discharge Plan Disposition Patient Disposition: Home Condition: Stable Discharge Details Clinical Impression: Headache, Vertigo Primary Care Provider: Hanna Patel ED Provider: Jason Peacock Home Meds and New Rx's Prescriptions: New meclizine [Antivert] 25 mg tablet,chewable 25 mg PO BID PRN (Reason: vertigo) Qty: 30 0RF Continued polyethylene glycol 3350 [Miralax] 17 gram/dose powder 17 g PO DAILY Qty: 510 2RF cyclosporine [Restasis] 0.05 % dropperette 1 drp ophthalmic (eye) Q12H Rx Instructions: L eye carboxymethylcellulose sodium [Refresh Plus] 0.5 % dropperette 1 drp ophthalmic (eye) DAILY insulin lispro [Humalog KwikPen Insulin] 100 unit/mL insulin pen 20 unit subcut TID MDD 60 units. Qty: 60 4RF Rx Instructions: Inject 20 units Humalog subcutaneously with meals as directed. atorvastatin 20 mg tablet 20 mg PO QPM Qty: 90 4RF Trulicity 1.5 mg/0.5 mL pen injector 1.5 mg subcut QWEEK MDD 1.5 28 Days Qty: 2 12RF Rx Instructions: inject 1.5 mg subcutaneously once weekly as directed multivitamin [Once Daily] 1 EACH tablet 1 ea PO DAILY (DME) FreeStyle Jessica 14 Day Arnold Misc See Dose Instructions .ROUTE .MEDSUPPLY Qty: 1 0RF Dose Instruction: As directed Rx Instructions: Dx E11.65 - glucose screening - pt. request/ BID screens (DME) blood-glucose meter [FreeStyle Lite Meter] Kit See Rx Instructions .ROUTE .MEDSUPPLY Qty: 1 0RF Rx Instructions: E11.65 BID testing (DME) FreeStyle Jessica 14 Day Sensor Kit See Dose Instructions .ROUTE .MEDSUPPLY Qty: 6 5RF Dose Instruction: As directed Rx Instructions: Dx E11.65 - glucose screening - insulin BID insulin degludec [Tresiba FlexTouch U-100] 100 unit/mL (3 mL) insulin pen 45 - 70 unit subcut DAILY Qty: 60 4RF Rx Instructions: e losartan 100 mg tablet 100 mg PO DAILY Qty: 90 6RF amlodipine 5 mg tablet 5 mg PO DAILY Qty: 90 6RF (DME) pen needle, diabetic [BD Ultra-Fine Mini Pen Needle] 31 gauge x 3/16 needle See Rx Instructions .ROUTE .COMPLEX Qty: 200 3RF Dose Instruction: TEST TWICE DAIILY Rx Instructions: TEST TWICE DAIILY levothyroxine 88 mcg tablet 88 mcg PO DAILY Qty: 90 3RF Trulicity 3 mg/0.5 mL pen injector 4.5 mg subcut QWEEK MDD 4.5 mg Qty: 6 12RF Rx Instructions: Inject 4.5 mg Trulicity subcutaneously once weekly. dapagliflozin propanediol [Farxiga] 5 mg tablet 5 mg PO DAILY Qty: 90 4RF acetaminophen [Tylenol] 325 MG tablet 650 mg PO Q4H PRN PRN0RF Discharge Instructions Instructions: Headache, Adult ED, Vertigo ED Additional Instructions: Please contact your primary care physician to arrange follow-up. Return to the ER immediately for any worsening or new concerning symptoms or at any time should you be concerned and wish to pursue additional diagnostics including lumbar puncture as recommended. Referrals: Hanna Patel MD, [place] [Primary Care Provider] - [facility] General Mode of arrival: ambulatory . Date/Time Provider Initiated Documentation: 10/21/23 11:40 . Limitations to Documentation: no limitations . Information obtained by: patient . HPI Narrative: 67-year-old female with history of bjx-iipuhib-gexjxqcvg diabetes, hypertension, hyperlipidemia, here for headache and dizziness, difficulty ambulating at times. Symptoms have been ongoing since Wednesday (4 days). PALMA was severe yesterday. PALMA now improved without treatment. Patient notes difficulty walking straight and leaning toward the left at times. Patient denies sinus congestion but ears feel pressure bilaterally L>R. Related Data Home Medications ?Medication ?Instructions ?Recorded ?Confirmed multivitamin (Once Daily tablet) 1 ea PO DAILY 09/22/12 10/21/23 acetaminophen 325 mg tablet 650 mg (2 x 325 mg) PO Q4H PRN PRN 11/05/15 10/21/23 (Tylenol) flash glucose scanning reader #1 ea 08/23/19 10/21/23 (FreeStyle Jessica 14 Day Arnold) blood-glucose meter (FreeStyle #1 ea 01/14/21 10/21/23 Lite Meter kit) polyethylene glycol 3350 17 17 g PO DAILY #510 grams 04/14/21 10/21/23 gram/dose oral powder (Miralax) flash glucose sensor (FreeStyle #6 ea 02/11/22 10/21/23 Jessica 14 Day Sensor kit) Tresiba FlexTouch U-100 100 45 - 70 unit (0.45 - 0.7 mL) 12/21/22 10/21/23 unit/mL (3 mL) subcutaneous pen subcut DAILY #60 mL (insulin degludec) losartan 100 mg tablet 100 mg PO DAILY #90 tabs 02/01/23 10/21/23 carboxymethylcellulose sodium 0.5 1 drp ophthalmic (eye) DAILY 02/27/23 10/21/23 % eye drops in a dropperette (Refresh Plus) cyclosporine 0.05 % eye drops in a 1 drp ophthalmic (eye) Q12H 02/27/23 10/21/23 dropperette (Restasis) amlodipine 5 mg tablet 5 mg PO DAILY #90 tabs 04/27/23 10/21/23 insulin lispro 100 unit/mL 20 unit (0.2 mL) subcut TID #60 mL 05/27/23 10/21/23 subcutaneous pen (Humalog KwikPen (U-100) Insulin) atorvastatin 20 mg tablet 20 mg PO QPM #90 tabs 06/03/23 10/21/23 pen needle, diabetic 31 gauge x #200 ea 07/06/23 10/21/2306/18 (BD Ultra-Fine Mini Pen Needle) levothyroxine 88 mcg tablet 88 mcg PO DAILY #90 tabs 07/08/23 10/21/23 Trulicity 3 mg/0.5 mL subcutaneous 4.5 mg (0.75 mL) subcut QWEEK #6 mL 07/27/23 10/21/23 pen injector (dulaglutide) dulaglutide 1.5 mg/0.5 mL 1.5 mg (0.5 mL) subcut QWEEK 28 07/28/23 10/21/23 subcutaneous pen injector days #2 mL (Trulicity) dapagliflozin propanediol 5 mg 5 mg PO DAILY #90 tabs 08/17/23 10/21/23 tablet (Farxiga) meclizine 25 mg chewable tablet 25 mg PO BID PRN vertigo #30 tabs 10/21/23 (Antivert) Previous Rx's ?Medication ?Instructions ?Recorded acetaminophen 325 mg tablet 650 mg (2 x 325 mg) PO Q4H PRN PRN 11/05/15 (Tylenol) flash glucose scanning reader #1 ea 08/23/19 (FreeStyle Jessica 14 Day Arnold) blood-glucose meter (FreeStyle #1 ea 01/14/21 Lite Meter kit) polyethylene glycol 3350 17 17 g PO DAILY #510 grams 04/14/21 gram/dose oral powder (Miralax) flash glucose sensor (FreeStyle #6 ea 02/11/22 Jessica 14 Day Sensor kit) Tresiba FlexTouch U-100 100 45 - 70 unit (0.45 - 0.7 mL) 12/21/22 unit/mL (3 mL) subcutaneous pen subcut DAILY #60 mL (insulin degludec) losartan 100 mg tablet 100 mg PO DAILY #90 tabs 02/01/23 amlodipine 5 mg tablet 5 mg PO DAILY #90 tabs 04/27/23 insulin lispro 100 unit/mL 20 unit (0.2 mL) subcut TID #60 mL 05/27/23 subcutaneous pen (Humalog KwikPen (U-100) Insulin) atorvastatin 20 mg tablet 20 mg PO QPM #90 tabs 06/03/23 pen needle, diabetic 31 gauge x #200 ea 07/06/2306/18 (BD Ultra-Fine Mini Pen Needle) levothyroxine 88 mcg tablet 88 mcg PO DAILY #90 tabs 07/08/23 Trulicity 3 mg/0.5 mL subcutaneous 4.5 mg (0.75 mL) subcut QWEEK #6 mL 07/27/23 pen injector (dulaglutide) dulaglutide 1.5 mg/0.5 mL 1.5 mg (0.5 mL) subcut QWEEK 28 07/28/23 subcutaneous pen injector days #2 mL (Trulicity) dapagliflozin propanediol 5 mg 5 mg PO DAILY #90 tabs 08/17/23 tablet (Farxiga) meclizine 25 mg chewable tablet 25 mg PO BID PRN vertigo #30 tabs 10/21/23 (Antivert) Allergies Allergy/AdvReac Type Severity Reaction Status Date / Time erythromycin base AdvReac Unknown DIARRHEA Verified 10/21/23 11:43 General Stated Complaint: Headache NICK: 4 Exam Const General: cooperative and no acute distress HENMT Head: normocephalic and atraumatic Ears: external ears normal, mastoids normal, no periauricular adenopathy and TM abnormal bulging bilaterally; not with effusion and not erythematous General nose exam: external nose normal Mouth: moist mucous membranes Throat: posterior oropharynx normal Eyes Conjunctivae: normal conjunctivae Sclera: normal sclerae Pupils: PERRL EOM: EOM intact bilaterally Resp Effort & Inspection: normal respiratory effort and able to speak in complete sentences Auscultation: clear to auscultation bilaterally, no rales, no rhonchi and no wheezes Cardio Rate: regular rate and not tachycardic Rhythm: regular rhythm Heart Sounds: no murmurs GI Palpation: soft, not firm, no guarding, no masses, not rigid and nontender Skin General skin exam: no rashes or lesions noted Neuro General: patient alert, patient awake, patient oriented x3 and tone normal Cognition: normal cognition Speech: speech normal Motor: strength 5/5 throughout Sensory Exam: no sensory deficits noted Coordination: ljszfy-qx-keck test normal and hchd-mc-nmjs test normal Other: rapid alternating movements nl no nystagmus appreciated Extrem General: no edema Psych Appearance: grossly normal Mental Status: mental status grossly normal Speech and Movement: speech and movement normal Course Vital Signs Vital signs: Vital Signs Temperature 37.1 C 10/21/23 11:44 Pulse 88 10/21/23 11:44 Respiratory Rate 16 10/21/23 11:44 Blood Pressure 136/75 10/21/23 11:44 Pulse Oximetry 99 10/21/23 11:44 Temperature 37.1 C 10/21/23 11:44 Pulse 88 10/21/23 11:44 Respiratory Rate 16 10/21/23 11:44 Blood Pressure 136/75 10/21/23 11:44 Pulse Oximetry 99 10/21/23 11:44 Pain Level 4 10/21/23 11:44 Medical Decision Making 67-year-old female sent from [facility] with history of igt-wbzxqjf-ewgcfdkfr diabetes, hypertension, hyperlipidemia, here for headache and dizziness, difficulty ambulating at times. Concern for posterior CVA versus mass versus hemorrhage. Initial plan to obtain CT of the head but was able to obtain stat MRI. MRI of the brain was interpreted by radiology:Unremarkable MRI of the brain. Labs were reviewed and were nondiagnostic. Patient has chronic kidney disease with creatinine 1.7. No leukocytosis. Results were discussed with the patient. I recommended lumbar puncture for definitive rule out of subarachnoid hemorrhage and patient provided informed refusal. Patient was given antivert and acetaminophen IV. I again recommended LP and patient refused. Patient reassessed and feeling better. Plan will be for patient to follow-up with her primary care physician and return for any worsening or new concerning symptoms. Patient understands the importance of timely follow-up. Lab Data Lab results reviewed: Yes I reviewed the patient's lab results. Labs: Laboratory Tests Range/Units 10/21/23 12:38 WBC (4.4-10.8) 10^3/uL 7.62 RBC (3.93-5.22) 10^6/uL 5.31 H Hgb (11.2-15.7) g/dL 14.7 Hct (36.0-46.0) % 45.5 MCV (80-95) fL 86 MCH (27.0-33.0) pg 27.7 MCHC (32.0-36.0) % 32.3 RDW (11.7-14.6) % 15.4 H Plt Count (130-400) 10^3/uL 266 MPV (8.0-11.0) fL 10.6 Immature Gran % % 0.4 Neutrophils % % 66.7 Lymphocytes % % 22.6 Monocytes % % 8.9 Eosinophils % % 1.0 Basophils % % 0.4 Nucleated RBC % (0.0-0.3) % 0.0 Absolute Neutrophils (1.2-6.7) 10^3/uL 5.08 Absolute Lymphocytes (1.2-3.4) 10^3/uL 1.72 Absolute Monocytes (0.1-0.8) 10^3/uL 0.68 Absolute Eosinophils (0.0-0.7) 10^3/uL 0.08 Absolute Basophils (0.0-0.2) 10^3/uL 0.03 Sodium (136-145) mmol/L 145 Potassium (3.5-5.1) mmol/L 4.0 Chloride (98-107) mmol/L 110 H Carbon Dioxide (21.0-32.0) mmol/L 27.4 Anion Gap (3-11) mmol/L 7.6 BUN (7-18) mg/dL 26 H Creatinine (0.55-1.02) mg/dL 1.7 H Est GFR (CKD-EPI 2020) (mL/min/1.73m2) 32.66 Glucose (74-106) mg/dL 82 Calcium (8.5-10.1) mg/dL 9.1 Magnesium (1.8-2.4) mg/dL 1.9 Total Bilirubin (0.2-1.0) mg/dL 1.14 H AST (15-37) U/L 18 ALT (14-59) U/L 35 Alkaline Phosphatase (46-116) U/L 84 Troponin I (< or =60) ng/L < 50 Total Protein (6.4-8.2) g/dL 7.8 Albumin (3.4-5.0) g/dL 3.8 Quality:SDOH Health Related Social Needs: No Data to Display PFSH All Active Problems (Updated 10/21/23 @ 16:03 by Jason Peacock MD) Vertigo (Acute) Headache (Acute) Sleep apnea (Acute) Hypertension (Chronic) DM (diabetes mellitus), type 2, uncontrolled (Chronic) GERD (gastroesophageal reflux disease) (Chronic) Hyperlipidemia (Chronic 09/22/12) Hypothyroidism (Chronic 09/22/12) Obesity (Chronic 09/22/12) Chronic kidney disease (Chronic) 2021, stage 3 Medical History Lower leg edema Constipation Vaginitis Pyelonephritis History of nephrolithotomy with removal of calculi Closed fracture of proximal end of left humerus (~12/2015) Acute lateral meniscus tear of right knee (08/26/15) meniscectomy 11/2015 Knee pain, right (09/21/13) Pap smear vag w ASC-US (03/04/02) neg. HPV Calculus of kidney and ureter (10/04/12) Left ureteroscopy with stone removal by Dr. Gilbert 10/04/2012. Surgical History Kidney Stone Extraction (~10/2012) Family History Mother Essential hypertension Heart disease Father , 64 Diabetes Essential hypertension Heart disease Sister Essential hypertension Hyperlipidemia Sister Diabetes Sister Diabetes Sister No problems noted. Daughter No problems noted. Social History Smoking/Tobacco Use Status: Never Second Hand Exposure: Yes Smoking risk assessment performed?: Yes Alcohol Intake: current Alcohol Intake frequency: holidays/special occasions only Alcohol type: hard liquor Drug use: Never Substance use type: does not use Counseling given: No Counseling provided: none Caregiver/Support person: No Household members: family and none Housing: house Communication Needs: Corrective Lenses Do you need help understanding health information?: Never Pets and animals: Yes Pets and animals: cat(s) Sexually active: No Do you think of yourself as: straight/heterosexual Current gender identity: female What is your relationship status?: How often do you talk on the phone with friends or family?: three or more times per week How often do you get together with friends or relatives?: once per week How often do you attend religion or restorationism services?: 4 or more times per year Do you belong to any clubs or organized social groups?: no Panel score (0-1 are the most socially isolated patients): 2 What type of physical activity do you participate in: walking and regular exercise Duration: < 15 minutes/day Frequency: 1-2 times per week Alexandrea/Mandaen: Ep[employer] Special alexandrea needs: No Seatbelt use: always Helmet use: No Drive intox or ride w/intox combine driver: No Do you feel safe at home: Yes Do you feel safe in your relationship?: Yes
[2023-10-21 12:48] LABS: Abs Immature Grans 0.03 10^3/uL (0.0-0.06); Absolute Basophil Count 0.03 10^3/uL (0.0-0.2); Absolute Eosinophil Count 0.08 10^3/uL (0.0-0.7); Absolute Lymphocyte Count 1.72 10^3/uL (1.2-3.4); Absolute Monocyte Count 0.68 10^3/uL (0.1-0.8); Absolute Neutrophil Count 5.08 10^3/uL (1.2-6.7); Basophils % 0.4 %; HCT 45.5 % (36.0-46.0); HGB 14.7 g/dL (11.2-15.7); Immature Grans % 0.4 %; Lymphocytes % 22.6 %; MCH 27.7 pg (27.0-33.0); MCHC 32.3 % (32.0-36.0); MCV 86 fL (80-95); MPV 10.6 fL (8.0-11.0); Monocytes % 8.9 %; Neutrophils % 66.7 %; Platelet Count 266 10^3/uL (130-400); RBC 5.31 10^6/uL (3.93-5.22); RDW 15.4 % (11.7-14.6); RDW-SD 47.5 fL; WBC 7.62 10^3/uL (4.4-10.8)
[2023-10-21 13:10] LABS: ALT 35 U/L (14-59); AST 18 U/L (15-37); Albumin 3.8 g/dL (3.4-5.0); Alkaline Phosphatase 84 U/L (46-116); Anion Gap 7.6 mmol/L (3-11); BUN 26 mg/dL (7-18); Bilirubin, Total 1.14 mg/dL (0.2-1.0); CO2 27.4 mmol/L (21.0-32.0); CREATININE 1.7 mg/dL (0.55-1.02); Calcium 9.1 mg/dL (8.5-10.1); Chloride 110 mmol/L (98-107); Estimated GFR 32.66 (mL/min/1.73m2); Glucose 82 mg/dL (74-106); Magnesium 1.9 mg/dL (1.8-2.4); Sodium 145 mmol/L (136-145); Total Protein 7.8 g/dL (6.4-8.2); Troponin I < 50 ng/L (< or =60)
--- NOTE | 2023-10-21 13:15 | DI.MRI_ITS ---
Exam(s) MR BRAIN WO EXAM: MR BRAIN WO CLINICAL HISTORY: headache, dizzy, falling to left TECHNIQUE: Multiplanar multisequence MRI of the brain was performed. COMPARISON: No exams were available for comparison FINDINGS: VENTRICLES AND EXTRA AXIAL SPACES: Normal in size and morphology for the patient's age. MIDLINE SHIFT: None. CEREBRAL PARENCHYMA: No focus of restricted diffusion to suggest acute infarct. No space-occupying le laurie identified. Mild atrophy consistent with the patient's age. Mild scattered foci of high signal in the white matter consistent with sequela of chronic microvascular disease. HEMORRHAGE: None. BRAINSTEM/CEREBELLUM: Normal. VISUALIZED PARANASAL SINUSES/MASTOIDS:Clear. Vasculature: Normal flow void. PITUITARY GLAND: Unremarkable. ORBITS: Unremarkable. IMPRESSION: Unremarkable MRI of the brain. DATA REPOSITORY:
[2023-10-21] MEDS: ACETAMINOPHEN 1,000 MG/100 ML BTL 400 MG IVPB (15:00)
[2023-10-21] MEDS: Meclizine 25 MG TAB PO (15:01)
--- NOTE | 2023-10-27 12:16 | NUR.NOTE ---
Access chart to reconcile EKG's in [facility] with [facility]. Duplicate order cancelled. Nursing Note:
== END 2023-10-21 16:17 | disposition home or self-care (01) ==
LOC: ER 16:03 → RED 16:17
PROVIDERS: Emergency Provider Student in an Organized Health Care Education/Training Program; PCP Family Medicine
DX: R51.9 Headache, unspecified (principal); R42 Dizziness and giddiness; E11.9 Type 2 diabetes mellitus without complications; I10 Essential (primary) hypertension; E78.5 Hyperlipidemia, unspecified; Z79.4 Long term (current) use of insulin; Z79.85 Long-term (current) use of injectable non-insulin antidiabetic drugs
CPT/HCPCS: 80053; 82962; 93005; 96365; 99285; 70551; 83735; 84484; 85025; 93010; 99284; J0131

== ENCOUNTER 2023-12-03 01:53 | Outpatient (CLI) | payer MEDICARE, OTHER, SELFPAY ==
[2023-12-03 10:51] LABS: Hemoglobin A1C 7.3 % (<5.7)
== END 2023-12-03 01:54 | disposition home or self-care (01) ==
LOC: LBO 01:54
PROVIDERS: PCP Family Medicine; Visit Provider Family Medicine
DX: E11.65 Type 2 diabetes mellitus with hyperglycemia
CPT/HCPCS: 36415; 83036

== ENCOUNTER → 2024-01-04 12:53 | Outpatient (BNVA) | payer MEDICARE, OTHER, SELFPAY | PROVIDERS: PCP Family Medicine; Visit Provider Nurse Practitioner Gerontology | DX: N20.0 Calculus of kidney (principal); Z87.440 Personal history of urinary (tract) infections | CPT/HCPCS: 51798; 99213 ==

== ENCOUNTER 2024-02-03 15:24 | Outpatient (REF) | payer MEDICARE, OTHER, SELFPAY ==
[2024-02-03 22:25] LABS: Bilirubin Negative (Negative); Blood Negative (Negative); Clarity Clear (Clear); Glucose 500 mg/dL (Negative); Ketones Negative (Negative); Leukocyte Esterase Trace (Negative); Nitrite Positive (Negative); Urobilinogen 0.2 mg/dL (Up to 0.2)
[2024-02-03 22:35] LABS: Bacteria Many HPF (Negative); C & S Indicated? No; Crystals Negative HPF (Negative); Epithelial Cells Rare HPF (Negative); Mucus Negative (Negative); Other Cells Rare Transitional (Negative); RBC Negative HPF (0-2)
== END 2024-02-03 15:25 | disposition home or self-care (01) ==
LOC: LBN 15:24
PROVIDERS: PCP Family Medicine; Visit Provider Nurse Practitioner Family
DX: R39.9 Unspecified symptoms and signs involving the genitourinary system (principal); N39.0 Urinary tract infection, site not specified; N12 Tubulo-interstitial nephritis, not specified as acute or chronic; N23 Unspecified renal colic
CPT/HCPCS: 81003; 81015

== ENCOUNTER 2024-02-03 15:40 | Outpatient (CLI) | payer MEDICARE, OTHER, SELFPAY ==
--- NOTE | 2024-02-03 13:15 | DI.US_ITS ---
Exam(s) US RENAL EXAM: US RENAL CLINICAL HISTORY: Rt flank pain, pyelonephritis, evaluate renal stone, abd pain, R10.9, N12. TECHNIQUE: Quevedo scale, color and spectral Doppler were used. COMPARISON: CT CT ABDOMEN PELVIS WO from 05/19/2020 FINDINGS: Right kidney: 8.5cm Echogenicity: Normal Hydronephrosis: No Cyst or mass: No Nephrolithiasis: 3 millimeter stone mid right kidney. Left kidney: 9.3cm Echogenicity: Normal Hydronephrosis: No Cyst or mass: 1.7 centimeter cyst mid lateral left kidney. Nephrolithiasis: No Bladder:Normal. Prevoid vol:159 cc Postvoid vol:13 cc IMPRESSION: Three millimeter stone mid right kidney. No evidence of hydronephrosis. No specific findings of heide lonephritis. DATA REPOSITORY:
== END 2024-02-03 16:00 ==
LOC: DI 15:42
PROVIDERS: PCP Family Medicine; Visit Provider Nurse Practitioner Family
DX: N12 Tubulo-interstitial nephritis, not specified as acute or chronic
CPT/HCPCS: 76770

== ENCOUNTER 2024-03-06 04:44 | Outpatient (CLI) | payer MEDICARE, OTHER, SELFPAY ==
[2024-03-06 12:26] LABS: Hemoglobin A1C 7.7 % (<5.7)
[2024-03-06 12:56] LABS: Anion Gap 12.6 mmol/L (3-11); BUN 32 mg/dL (7-18); CO2 25.4 mmol/L (21.0-32.0); CREATININE 1.9 mg/dL (0.55-1.02); Calcium 9.5 mg/dL (8.5-10.1); Chloride 109 mmol/L (98-107); Estimated GFR 28.41 (mL/min/1.73m2); Glucose 143 mg/dL (74-106); Potassium 4.3 mmol/L (3.5-5.1); Sodium 147 mmol/L (136-145)
== END 2024-03-06 04:45 | disposition home or self-care (01) ==
LOC: LBO 04:44
PROVIDERS: PCP Family Medicine; Visit Provider Family Medicine
DX: E11.65 Type 2 diabetes mellitus with hyperglycemia (principal); N18.32 Chronic kidney disease, stage 3b
CPT/HCPCS: 36415; 80048; 83036

== ENCOUNTER 2024-06-26 02:46 | Outpatient (CLI) | payer MEDICARE, SELFPAY ==
[2024-06-26 12:11] LABS: Hemoglobin A1C 7.2 % (<5.7)
[2024-06-26 12:46] LABS: Anion Gap 9.8 mmol/L (3-11); BUN 28 mg/dL (7-18); CO2 28.2 mmol/L (21.0-32.0); CREATININE 1.7 mg/dL (0.55-1.02); Calcium 10.1 mg/dL (8.5-10.1); Chloride 110 mmol/L (98-107); Estimated GFR 32.46 (mL/min/1.73m2); Glucose 136 mg/dL (74-106); Potassium 4.1 mmol/L (3.5-5.1); Sodium 148 mmol/L (136-145)
== END 2024-06-26 02:47 | disposition home or self-care (01) ==
LOC: LBO 02:46
PROVIDERS: PCP Family Medicine; Visit Provider Family Medicine
DX: E11.65 Type 2 diabetes mellitus with hyperglycemia (principal); N18.32 Chronic kidney disease, stage 3b
CPT/HCPCS: 36415; 80048; 83036

== ENCOUNTER 2024-08-22 01:16 | Outpatient (CLI) | payer MEDICARE, SELFPAY ==
--- NOTE | 2024-08-22 08:06 | DI.MAMMO_ITS ---
Exam(s) MAMMO SCREENING EXAM: MAMMO SCREENING CLINICAL HISTORY: screening Z12.39 TECHNIQUE: Mammograms were interpreted according to the usual protocol including computer analysis w [employer] CAD system, tomosynthesis and C-view imaging. COMPARISON: 2014 through 2021 FINDINGS: The breasts are composed of mainly fatty density , Breast Density category A. No suspicious masses or suspicious microcalcifications are seen. No skin thickening or abnormal axillary lymph nodes are seen. There has been no significant change from prior exams. IMPRESSION: BI-RADS Category 1, Negative mammogram Yearly screening mammography is recommended. Breast Density - Category A, fatty density. Breast density Category C or D implies that the patient has dense breast tissue. Dense breast tissue can make it harder to find cancer on a mammogram. Dense breast tissue is also associated with an incr eased risk of breast cancer. This information about the result of the mammogram report was provided to the patient to raise their awareness. Use this report when you speak with the patient about their risks for breast cancer, which includes their family history. At that time, you may recommend additional screening tests (Ultrasoun d or MRI) as these tests may add significant information. A negative radiographic report should not delay biopsy if a dominant or clinically suspicious mass is present. Up to ten percent of cancers are not identified on mammography. A negative report may reinforce clinical impression. Adenosis and dense breasts may obscure an underlying neoplasm. False positive reports average 6 to 10%. Patient will receive a letter notifying them of these results.
== END 2024-08-22 01:36 ==
LOC: DI 01:16
PROVIDERS: PCP Family Medicine; Visit Provider Family Medicine
DX: Z12.31 Encounter for screening mammogram for malignant neoplasm of breast (principal); R92.313 Mammographic fatty tissue density, bilateral breasts
CPT/HCPCS: 77063; 77067

== ENCOUNTER 2024-08-29 02:32 | Outpatient (CLI) | payer MEDICARE, SELFPAY ==
[2024-08-29 14:51] LABS: Vitamin B12 599 pg/mL (193-986)
[2024-08-30 10:32] LABS: Hepatitis C Ab w Rflx HCV PCR Negative (Negative)
== END 2024-08-29 02:33 | disposition home or self-care (01) ==
LOC: LBO 02:32
PROVIDERS: PCP Family Medicine; Visit Provider Family Medicine
DX: Z11.59 Encounter for screening for other viral diseases (principal); E53.8 Deficiency of other specified B group vitamins
CPT/HCPCS: 36415; 86803; 82043; 82570; 82607

== ENCOUNTER 2024-08-29 14:00 | Outpatient (REF) | payer MEDICARE, SELFPAY ==
[2024-08-30 13:48] LABS: COMMENT (LAB VIEW ONLY) 162.44 mg/dL; Microalb ug/mg Crea 16.4 ug/mg Cr
== END 2024-08-29 14:01 | disposition home or self-care (01) ==
LOC: LBN 14:00
PROVIDERS: PCP Family Medicine; Visit Provider Family Medicine
DX: E11.9 Type 2 diabetes mellitus without complications (principal)
CPT/HCPCS: 82043; 82570

== ENCOUNTER 2024-10-02 08:27 | Outpatient (CLI) | payer MEDICARE, SELFPAY ==
[2024-10-02 14:17] LABS: Hemoglobin A1C 6.6 % (<5.7)
[2024-10-02 14:22] LABS: Anion Gap 10.8 mmol/L (3-11); BUN 28 mg/dL (7-18); CO2 25.2 mmol/L (21.0-32.0); CREATININE 1.6 mg/dL (0.55-1.02); Calcium 9.2 mg/dL (8.5-10.1); Chloride 110 mmol/L (98-107); Estimated GFR 34.91 (mL/min/1.73m2); Glucose 128 mg/dL (74-106); Potassium 4.2 mmol/L (3.5-5.1); Sodium 146 mmol/L (136-145)
== END 2024-10-02 08:28 | disposition home or self-care (01) ==
LOC: LBO 08:27
PROVIDERS: PCP Family Medicine; Visit Provider Family Medicine
DX: N18.32 Chronic kidney disease, stage 3b (principal); E11.8 Type 2 diabetes mellitus with unspecified complications
CPT/HCPCS: 36415; 80048; 83036

== ENCOUNTER 2025-01-11 04:16 | Outpatient (CLI) | payer MEDICARE, SELFPAY ==
[2025-01-11 09:46] LABS: Hemoglobin A1C 6.6 % (<5.7)
[2025-01-11 10:15] LABS: TSH (W/Ref FT4) 1.33 uIU/mL (0.36-3.74)
== END 2025-01-11 04:17 | disposition home or self-care (01) ==
LOC: LBO 04:16
PROVIDERS: PCP Family Medicine; Visit Provider Family Medicine
DX: E03.9 Hypothyroidism, unspecified (principal); E11.9 Type 2 diabetes mellitus without complications
CPT/HCPCS: 36415; 83036; 84443

== ENCOUNTER 2025-02-20 12:05 | Outpatient (CLI) | payer MEDICARE, SELFPAY ==
--- NOTE | 2025-02-20 11:15 | DI.RAD_ITS ---
Exam(s) XR WRIST LT LIMITED EXAM: XR WRIST LT LIMITED INDICATION: F/U FRACTURE. COMPARISON: RF FLUORO UP TO 1 HOUR BD from 02/13/2025 CR XR WRIST LT HW from 02/13/2025 CR XR WRIST LT HW from 02/13/2025 TECHNIQUE: 2D digital imaging was performed. Two views. FINDINGS: A plaster splint is in place which partially obscures the bony detail.. A comminuted intra-articular fracture of the distal radius is again noted without gross change in alignment. DATA REPOSITORY: RADIATION DOSE DELIVERED:
== END 2025-02-20 12:06 | disposition home or self-care (01) ==
LOC: DIORS 12:05
PROVIDERS: PCP Family Medicine; Referring Provider Family Medicine; Visit Provider Student in an Organized Health Care Education/Training Program
DX: S52.572A Other intraarticular fracture of lower end of left radius, initial encounter for closed fracture (principal); W10.9XXA Fall (on) (from) unspecified stairs and steps, initial encounter
CPT/HCPCS: 99214; 73100

== ENCOUNTER → 2025-02-21 08:36 | Outpatient (CLI) | payer MEDICARE, SELFPAY ==
--- NOTE | 2025-02-21 08:30 | DI.CT_ITS ---
Exam(s) CT UPPER EXTREMITY LT WO EXAM: CT UPPER EXTREMITY LT WO CLINICAL HISTORY: Fracute of left distal radius/S52.502A TECHNIQUE: Imaging Protocol: Axial computed tomography images with coronal and sagittal reformatted images were created and reviewed. CONTRAST MATERIAL: Intravenous: Omnipaque 350 Contrast volume:structured data in ml Contrast route:IV - Oral: yes / no COMPARISON: CR XR WRIST LT HW from 02/13/2025 FINDINGS: OSSEOUS: There is a comminuted intra-articular fracture of the distal radius multiple fragments. There is a step at the articular surface measuring 3 mm as measured on the coronal images. There is fracture at the base of the ulnar styloid with mild displacement. There is no significant ulnar variance. No abnormality of the lunate evident. There is no evidence of fracture of the scaphoid-navicular nor widening of the scapholunate distance. There is, however, some moderate degenerative change noted at the articulation between the distal scaphoid and the trapezium. There is no evidence of lunate or perilunate dislocation. Subtle linear lucency in the hook of the hamate is most probably a nutrient artery canal. There is a benign nonexpansile cyst measuring 4 x 3 mm in the volar aspect of the distal scaphoid-navicular. IMPRESSION: Comminuted intra-articular fracture of the distal radius and ulnar styloid as described above. No significant ulnar variance and no evidence of carpal dislocation. Other findings as above. RADIATION DOSE DELIVERED: 94.6mGy.cm Total DLP DATA REPOSITORY: All CT scans at this facility are submitted to the National Radiology Data Registry (NRDR) Dose Index Registry (DIR) with the [employer] (ACR). RADIATION OPTIMIZATION: All CT scans at this facility use at least one of these dose optimization techniques: automated exposure control; mA and/or kV adjustment per patient size (includes targeted exams where dose is matched to clinical indication); or iterative reconstruction.
== END ==
LOC: DI 08:36
PROVIDERS: PCP Family Medicine; Visit Provider Student in an Organized Health Care Education/Training Program
DX: S52.572A Other intraarticular fracture of lower end of left radius, initial encounter for closed fracture (principal); X58.XXXA Exposure to other specified factors, initial encounter
CPT/HCPCS: 73200

== ENCOUNTER 2025-02-22 17:37 | Observation (INO) | payer MEDICARE, SELFPAY ==
[2025-02-22] VITALS (36 sets, daily range): BP systolic 101–151; BP diastolic 49–93; PULSE 56–97; RESP 10–21; TEMP 36.4–36.9; O2SAT 72–99; BMI 33.9
--- NOTE | 2025-02-22 07:19 | W.PM.DSUDISC ---
Date of service: 02/22/25 Discharge Plan Disposition Patient Disposition: Home Condition: Stable Discharge Details Attending Provider: Robles Delgadillo Primary Care Provider: Hanna Patel Home Meds and New Rx's Prescriptions: New oxycodone 5 mg tablet 5 - 10 mg PO Q4H PRN (Reason: Moderate to severe pain) Qty: 18 0RF Continued polyethylene glycol 3350 [Miralax] 17 gram/dose powder 17 g PO DAILY Qty: 510 2RF cyclosporine [Restasis] 0.05 % dropperette 1 drp ophthalmic (eye) Q12H Rx Instructions: L eye carboxymethylcellulose sodium [Refresh Plus] 0.5 % dropperette 1 drp ophthalmic (eye) DAILY insulin aspart U-100 [Novolog FlexPen U-100 Insulin] 100 unit/mL (3 mL) insulin pen 20 unit subcut TID 90 Days Qty: 60 4RF Rx Instructions: Inject 20 units before meals three times daily as directed. tirzepatide 12.5 mg/0.5 mL pen injector 12.5 mg subcut QWEEK 28 Days Qty: 2 12RF Rx Instructions: Inject 12.5 mg subcutaneously once weekly as directed. tetanus and diphther. tox (PF) 5 Lf unit- 2 Lf unit/0.5mL suspension 0.5 ml IM ONCE Qty: 0.5 0RF Rx Instructions: as a single dose levothyroxine 88 mcg tablet 88 mcg PO DAILY Qty: 90 3RF oxycodone 5 mg tablet 5 mg PO BID MDD 10mg PRN (Reason: pain) Qty: 20 0RF dapagliflozin propanediol [Farxiga] 5 mg tablet 5 mg PO DAILY Qty: 90 4RF (DME) Dexcom G7 Sensor Device See Rx Instructions .Route Rx Instructions: Monitoring Blood Glucose multivitamin [Once Daily] 1 EACH tablet 1 ea PO DAILY (DME) blood-glucose meter [FreeStyle Lite Meter] Kit See Rx Instructions .ROUTE .MEDSUPPLY Qty: 1 0RF Rx Instructions: E11.65 BID testing insulin degludec [Tresiba FlexTouch U-100] 100 unit/mL (3 mL) insulin pen 60 unit subcut DAILY 90 Days Qty: 60 4RF Patient Comments: Pt. states she takes 30 units QAM and 30 units QHS Rx Instructions: Inject 60 units subcutaneously, once daily. Titrate as directed. (DME) pen needle, diabetic 31 gauge x 3/16 needle See Rx Instructions .ROUTE .COMPLEX Qty: 200 3RF Dose Instruction: TEST TWICE DAIILY Rx Instructions: TEST TWICE DAIILY atorvastatin 20 mg tablet 20 mg PO QPM Qty: 90 4RF losartan 100 mg tablet 100 mg PO DAILY Qty: 90 6RF acetaminophen [Tylenol] 325 MG tablet 650 mg PO Q4H PRN PRN0RF amlodipine 5 mg tablet 5 mg PO HS Discharge Instructions Additional Instructions: Surgery: Left wrist closed reduction, external fixation on 02/22/2025 Activity: Nonweightbearing left wrist. Recommend elevation to minimize swelling discomfort. Encourage range of motion to all fingers and thumb to prevent stiffness. Prescriptions: Oxycodone 5 mg take 1-2 every 4-6 hours as needed for severe pain You may use [id number] Tylenol (acetaminophen) as needed for mild to moderate pain. These pain medications may be taken all at once or in different combinations as needed. Dressings: Leave splint and dressing in place until follow-up. Keep clean and dry at all times. You may adjust the Gutierrez bandages using the Velcro for comfort. It is normal for there to be some drainage around the pin sites. If anything become saturated, please let my office know and we can help you with a dressing change sooner. Follow-up: 10-[address] Delgadillo You may take off the leg compression stockings this evening at home. You may also leave them on a few days longer if you have a history of leg swelling or edema. Let us know right away if you develop any redness, drainage, fevers, chest pain, or trouble breathing. Do not drink alcohol or drive for at least 24 hours after anesthesia. Please call the office during business hours with any questions or concerns. Stand Alone Forms: Portal Information Discharge Orders Discharge Orders: Discharge Order (Routine); Ordered 02/22/25 Ordered By: Sylvester Porter DS: Diagnosis Discharge Diagnosis (1) Distal radius fracture, left: Status: Acute
[2025-02-22] MEDS: Lactated Ringers 1,000 ML 30 ML IV (12:06)
--- NOTE | 2025-02-22 12:20 | W.ANESPRE ---
General Info Date of Service Date Performed: 02/22/25 Height: 5 ft 2.5 in Weight: 85.5 kg Body Mass Index (BMI): 33.9 Surgical Procedure: Operation Date: 02/22/25 11:55 Proposed Procedure Side Surgeon p Wrist Closed Distal Radius, External Fixation Left Robles Delgadillo MD Actual Procedure Side Surgeon p Wrist Closed Distal Radius, External Fixation Left Robles Delgadillo MD Pre-Op Diagnosis Post-Op Diagnosis Distal radius fracture, left Meds Allergies and Home Medications Allergies Allergy/AdvReac Type Severity Reaction Status Date / Time erythromycin base AdvReac Unknown DIARRHEA Verified 02/22/25 10:54 Home Medication ?Medication ?Instructions ?Recorded multivitamin (Once Daily tablet) 1 ea PO DAILY 09/22/12 acetaminophen 325 mg tablet 650 mg (2 x 325 mg) PO Q4H PRN PRN 11/05/15 (Tylenol) blood-glucose meter (PublikDemandStyle #1 ea 01/14/21 Lite Meter kit) polyethylene glycol 3350 17 17 g PO DAILY #510 grams 04/14/21 gram/dose oral powder (Miralax) carboxymethylcellulose sodium 0.5 1 drp ophthalmic (eye) DAILY 02/27/23 % eye drops in a dropperette (Refresh Plus) cyclosporine 0.05 % eye drops in a 1 drp ophthalmic (eye) Q12H 02/27/23 dropperette (Restasis) insulin aspart U-100 100 unit/mL 20 unit (0.2 mL) subcut TID 90 04/20/24 (3 mL) subcutaneous pen (Novolog days #60 mL FlexPen U-100 Insulin aspart) insulin degludec 100 unit/mL (3 60 unit (0.6 mL) subcut DAILY 05/01/24 mL) subcutaneous pen (Tresiba days #60 mL FlexTouch U-100 insulin) blood-glucose sensor (VisionGatecom G7 05/25/24 Sensor device) pen needle, diabetic 31 gauge x #200 ea 06/23/2406/18 atorvastatin 20 mg tablet 20 mg PO QPM #90 tabs 07/12/24 dapagliflozin propanediol 5 mg 5 mg PO DAILY #90 tabs 07/25/24 tablet (Farxiga) tirzepatide 12.5 mg/0.5 mL 12.5 mg (0.5 mL) subcut QWEEK 28 08/30/24 subcutaneous pen injector days #2 mL losartan 100 mg tablet 100 mg PO DAILY #90 tabs 11/24/24 levothyroxine 88 mcg tablet 88 mcg PO DAILY #90 tabs 11/28/24 tetanus and diphther. tox (PF) 5 0.5 ml IM ONCE #0.5 mL 11/28/24 Lf unit-2 Lf unit/0.5 mL IM susp oxycodone 5 mg tablet 5 mg PO BID PRN pain #20 tabs 02/15/25 amlodipine 5 mg tablet 5 mg PO HS 02/21/25 Current Visit Medications: Current Medications Generic Name Dose Route Start Last Admin Trade Name Freq PRN Reason Stop Dose Admin Ringer's Solution 1,000 mls @ 30 mls/hr 02/22/25 06:00 02/22/25 12:06 IV 02/22/25 23:59 30 mls/hr INFUSION DAY Administration Cefazolin Sodium/Dextrose 2 gm in 50 mls @ 100 mls/hr 02/22/25 06:00 Ancef Duplex IVPB 02/22/25 23:59 PREOP DAY IV Miscellaneous Supplies 1 each 02/22/25 06:00 Iv Access IV 02/22/25 23:59 DIRECTED DAY Oxycodone HCl 0 mg 02/22/25 07:19 Oxycodone 5 Mg Tab PO 03/24/25 07:18 Q3H PRN PRN Pain Sodium Chloride 0 ml 02/22/25 06:00 Normal Saline Flush 10 Ml Syr IV 02/22/25 23:59 PRN PRN Sodium Chloride 0 ml 02/22/25 06:00 Normal Saline 10 Ml Vial IJ 02/22/25 23:59 DIRECTED PRN Sterile Water 0 ml 02/22/25 06:00 Water,Injection,Sterile 10 Ml Vial IJ 02/22/25 23:59 DIRECTED PRN PFSH Active Problems Active Problems: Problem Status Onset Code Distal radius fracture, left Acute S52.502A Left humeral fracture Acute S42.302A Balance disorder Acute R26.89 B12 deficiency Acute E53.8 Sleep apnea Chronic G47.30 Hypertension Chronic I10 DM (diabetes mellitus), type 2, uncontrolled Chronic E11.65 GERD (gastroesophageal reflux disease) Chronic K21.9 Hyperlipidemia Chronic 09/22/12 E78.5 Hypothyroidism Chronic 09/22/12 E03.9 Obesity Chronic 09/22/12 E66.9 Chronic kidney disease Chronic N18.9 Medical History Medical History Lower leg edema Constipation Vaginitis Pyelonephritis History of nephrolithotomy with removal of calculi Closed fracture of proximal end of left humerus (~12/2015) Acute lateral meniscus tear of right knee (08/26/15) meniscectomy 11/2015 Knee pain, right (09/21/13) Pap smear vag w ASC-US (03/04/02) neg. HPV Calculus of kidney and ureter (10/04/12) Left ureteroscopy with stone removal by Dr. Gilbert 10/04/2012. Surgical History Surgical History Kidney Stone Extraction (~10/2012) Tobacco Smoking/Tobacco Use Status: Never Passive smoking exposure: Yes Second hand exposure: Yes Alcohol Alcohol Intake: current Alcohol intake frequency: holidays/special occasions only Alcohol type: hard liquor Substance Use Substance use: Never Substance use type: does not use Counseling provided: none Vital Signs and Lab Results Vital Signs Most Recent Vital Signs in EMR: Most Recent Vital Signs Temp Pulse Resp BP Pulse Ox 36.4 C L 70 16 129/79 97 02/22/25 10:50 02/22/25 10:50 02/22/25 10:50 02/22/25 10:50 02/22/25 10:50 Point of Care Results Point of Care Results: Finger Stick Blood Glucose 111 02/22/25 11:11 Lab Results 02/22/25 12:23 Imaging and Studies Imaging and Studies Study information below may be from another EMR and interpreted by another provider. Please see original notes in EMR for more complete details. EKG Summary: 10/21/23: Exam: Resting ECG Reason for Exam: Dizziness Patient Location: E HR:69 bpm ECG Measurements Heart Rate 69 AXIS MS 146 P 61 QRSd 87 QRS 19 QT 393 T49 QTc 421 Conclusion Sinus rhythm...normal P axis, V-rate 60- 99 I have reviewed and I agree with the emergency room physician's ECG interpretation. Anesthesia Assessment and Plan Anesthesia History Personal History: Other Family History: No Family History of Anesthesia Complications Implantable Cardiac Device Does patient have a Pacemaker or an ICD?: No
[2025-02-22 13:28] LABS: Anion Gap 9.2 mmol/L (3-11); BUN 31 mg/dL (9-23); CO2 23.8 mmol/L (20.0-31.0); Calcium 9.3 mg/dL (8.3-10.6); Chloride 115 mmol/L (98-107); Glucose 86 mg/dL (74-106); Potassium 4.5 mmol/L (3.5-5.1); Sodium 148 mmol/L (136-145)
--- NOTE | 2025-02-22 14:18 | W.ANESPRE ---
General Info Date of Service Date Performed: 02/22/25 Height: 5 ft 2.5 in Weight: 85.5 kg Body Mass Index (BMI): 33.9 Surgical Procedure: Operation Date: 02/22/25 11:55 Proposed Procedure Side Surgeon p Wrist Closed Distal Radius, External Fixation Left Robles Delgadillo MD Actual Procedure Side Surgeon p Wrist Closed Distal Radius, External Fixation Left Robles Delgadillo MD Pre-Op Diagnosis Post-Op Diagnosis Distal radius fracture, left Meds Allergies and Home Medications Allergies Allergy/AdvReac Type Severity Reaction Status Date / Time erythromycin base AdvReac Unknown DIARRHEA Verified 02/22/25 10:54 Home Medication ?Medication ?Instructions ?Recorded multivitamin (Once Daily tablet) 1 ea PO DAILY 09/22/12 acetaminophen 325 mg tablet 650 mg (2 x 325 mg) PO Q4H PRN PRN 11/05/15 (Tylenol) blood-glucose meter (iPierianStyle #1 ea 01/14/21 Lite Meter kit) polyethylene glycol 3350 17 17 g PO DAILY #510 grams 04/14/21 gram/dose oral powder (Miralax) carboxymethylcellulose sodium 0.5 1 drp ophthalmic (eye) DAILY 02/27/23 % eye drops in a dropperette (Refresh Plus) cyclosporine 0.05 % eye drops in a 1 drp ophthalmic (eye) Q12H 02/27/23 dropperette (Restasis) insulin aspart U-100 100 unit/mL 20 unit (0.2 mL) subcut TID 90 04/20/24 (3 mL) subcutaneous pen (Novolog days #60 mL FlexPen U-100 Insulin aspart) insulin degludec 100 unit/mL (3 60 unit (0.6 mL) subcut DAILY 05/01/24 mL) subcutaneous pen (Tresiba days #60 mL FlexTouch U-100 insulin) blood-glucose sensor (BioCatchcom G7 05/25/24 Sensor device) pen needle, diabetic 31 gauge x #200 ea 06/23/2406/18 atorvastatin 20 mg tablet 20 mg PO QPM #90 tabs 07/12/24 dapagliflozin propanediol 5 mg 5 mg PO DAILY #90 tabs 07/25/24 tablet (Farxiga) tirzepatide 12.5 mg/0.5 mL 12.5 mg (0.5 mL) subcut QWEEK 28 08/30/24 subcutaneous pen injector days #2 mL losartan 100 mg tablet 100 mg PO DAILY #90 tabs 11/24/24 levothyroxine 88 mcg tablet 88 mcg PO DAILY #90 tabs 11/28/24 tetanus and diphther. tox (PF) 5 0.5 ml IM ONCE #0.5 mL 11/28/24 Lf unit-2 Lf unit/0.5 mL IM susp oxycodone 5 mg tablet 5 mg PO BID PRN pain #20 tabs 02/15/25 amlodipine 5 mg tablet 5 mg PO HS 02/21/25 Current Visit Medications: Current Medications Generic Name Dose Route Start Last Admin Trade Name Freq PRN Reason Stop Dose Admin Ringer's Solution 1,000 mls @ 30 mls/hr 02/22/25 06:00 02/22/25 12:06 IV 02/22/25 23:59 30 mls/hr INFUSION DAY Administration Cefazolin Sodium/Dextrose 2 gm in 50 mls @ 100 mls/hr 02/22/25 06:00 Ancef Duplex IVPB 02/22/25 23:59 PREOP DAY IV Miscellaneous Supplies 1 each 02/22/25 06:00 Iv Access IV 02/22/25 23:59 DIRECTED DAY Oxycodone HCl 0 mg 02/22/25 07:19 Oxycodone 5 Mg Tab PO 03/24/25 07:18 Q3H PRN PRN Pain Sodium Chloride 0 ml 02/22/25 06:00 Normal Saline Flush 10 Ml Syr IV 02/22/25 23:59 PRN PRN Sodium Chloride 0 ml 02/22/25 06:00 Normal Saline 10 Ml Vial IJ 02/22/25 23:59 DIRECTED PRN Sterile Water 0 ml 02/22/25 06:00 Water,Injection,Sterile 10 Ml Vial IJ 02/22/25 23:59 DIRECTED PRN PFSH Active Problems Active Problems: Problem Status Onset Code Distal radius fracture, left Acute S52.502A Left humeral fracture Acute S42.302A Balance disorder Acute R26.89 B12 deficiency Acute E53.8 Sleep apnea Chronic G47.30 Hypertension Chronic I10 DM (diabetes mellitus), type 2, uncontrolled Chronic E11.65 GERD (gastroesophageal reflux disease) Chronic K21.9 Hyperlipidemia Chronic 09/22/12 E78.5 Hypothyroidism Chronic 09/22/12 E03.9 Obesity Chronic 09/22/12 E66.9 Chronic kidney disease Chronic N18.9 Medical History Medical History Lower leg edema Constipation Vaginitis Pyelonephritis History of nephrolithotomy with removal of calculi Closed fracture of proximal end of left humerus (~12/2015) Acute lateral meniscus tear of right knee (08/26/15) meniscectomy 11/2015 Knee pain, right (09/21/13) Pap smear vag w ASC-US (03/04/02) neg. HPV Calculus of kidney and ureter (10/04/12) Left ureteroscopy with stone removal by Dr. Gilbert 10/04/2012. Surgical History Surgical History Kidney Stone Extraction (~10/2012) Tobacco Smoking/Tobacco Use Status: Never Passive smoking exposure: Yes Second hand exposure: Yes Alcohol Alcohol Intake: current Alcohol intake frequency: holidays/special occasions only Alcohol type: hard liquor Substance Use Substance use: Never Substance use type: does not use Counseling provided: none Vital Signs and Lab Results Vital Signs Most Recent Vital Signs in EMR: Most Recent Vital Signs Temp Pulse Resp BP Pulse Ox 36.4 C L 70 16 129/79 97 02/22/25 10:50 02/22/25 10:50 02/22/25 10:50 02/22/25 10:50 02/22/25 10:50 Point of Care Results Point of Care Results: Finger Stick Blood Glucose 111 02/22/25 11:11 Lab Results 02/22/25 13:05 Complete Metabolic Panel: Sodium, (136-145) 148 mmol/L H Today, 13:05 Potassium, (3.5-5.1) 4.5 mmol/L Today, 13:05 Chloride, (98-107) 115 mmol/L H Today, 13:05 Carbon Dioxide, (20.0-31.0) 23.8 mmol/L Today, 13:05 BUN, (9-23) 31 mg/dL H Today, 13:05 Creatinine, (0.55-1.02) 1.6 mg/dL H Today, 13:05 Est GFR (CKD-EPI 2020), (mL/min/1.73m2) 31.05 Today, 13:05 Calcium, (8.3-10.6) 9.3 mg/dL Today, 13:05 Glucose, (74-106) 86 mg/dL Today, 13:05 Imaging and Studies Imaging and Studies Study information below may be from another EMR and interpreted by another provider. Please see original notes in EMR for more complete details. EKG Summary: 10/21/23: Exam: Resting ECG Reason for Exam: Dizziness Patient Location: E HR:69 bpm ECG Measurements Heart Rate 69 AXIS KS 146 P 61 QRSd 87 QRS 19 QT 393 T49 QTc 421 Conclusion Sinus rhythm...normal P axis, V-rate 60- 99 I have reviewed and I agree with the emergency room physician's ECG interpretation. Anesthesia Assessment and Plan Anesthesia History Personal History: Other Family History: No Family History of Anesthesia Complications Exercise Tolerance Exercise Tolerance: Metabolic Equivalents<4 Pertinent Negatives Pertinent Negatives: No Major Cardiovascular Symptoms or Complaints and No Major Pulmonary Symptoms or Complaints Cardiac & Pulmonary Exam Cardiac Exam: Normal S1/S2 Heart Sounds Pulmonary Exam: Clear Bilateral Breath Sounds Implantable Cardiac Device Does patient have a Pacemaker or an ICD?: No Airway Exam Known Difficult Airway: No Mallampati Class: 2 Mouth Opening: Normal (> 3cm) Thyromental Distance: Greater than 3 cm Neck Range of Motion: Full ROM Neck Circumference: Normal Teeth Condition: Generalized Poor Dentition ASA Classification ASA Score: ASA 3 Emergency Case?: No NPO Status NPO Status: NPO Clears >2 hours, Solids >8 hours Anesthesia Plan Resuscitation Status: Full Code Anesthesia Technique: General Anesthesia Airway Planned: LMA Monitors Used: Standard Monitors and SedLine Preoperative Comments:: Adam held for one day, surgeon aware.
--- NOTE | 2025-02-22 14:45 | DI.RAD_ITS ---
Exam(s) XR WRIST LT LIMITED EXAM: XR WRIST LT LIMITED CLINICAL HISTORY: Fractured left distal radius. TECHNIQUE: 2D digital imaging was performed. COMPARISON: No exams were available for comparison FINDINGS: Fluoroscopy provided intraoperatively during placement of internal/external fixation device for the comminuted fracture of the distal left radius described on recent CT scan. See procedure report for details. IMPRESSION: Radiation exposure index/cumulative dose:Ka,r=0.05mGy DATA REPOSITORY: RADIATION DOSE DELIVERED:
[2025-02-22] MEDS: ceFAZolin 2 GM/50 ML BAG IVPB (15:30)
[2025-02-22] MEDS: Bupivacaine 0.25% Pres-Free W/EPI 30 ML VIAL (15:46)
[2025-02-22] MEDS: fentaNYL 100 MCG/2 ML VIAL IVP ×2 (16:32→17:04)
[2025-02-22] MEDS: ACETAMINOPHEN 1,000 MG/100 ML BAG 400 MG IVPB (16:40)
--- NOTE | 2025-02-22 17:07 | W.ANESNERVE ---
Nerve Block Single Injection Procedure Date and Time Date Performed: 02/22/25 Procedure Start: 16:56 Location Where Procedure Performed Procedure Location: PACU Reason Performed: Postoperative Analgesia Requesting Provider: Robles Delgadillo Timeout Performed Timeout Performed: Yes Monitoring Used ECG, Blood Pressure, SpO2 and See EMR for corresponding vital signs Sterility Sterility: Hand Hygiene, Surgical Cap, Surgical Mask, Sterile Gloves and Chlorhexidine Sedation Given During Procedure Sedation Given (Indicate Dose Given): No Sedation given Patient Mental Status Patient Mental Status: Awake Nerve Block 1st Nerve Block: Laterality: Left Block Type: Interscalene Ultrasound Image Saved?: Yes Needle / Catheter Used: 80mm SonoPlex II Local Anesthetic Bolus (Indicate Dose Given): Lidocaine used for local infiltration of skin, Injected in 3-5ml increments after negative blood aspiration, Bupivacaine 0.5% Dose:: 10mL and Exparel Dose:: 10mL Additives (Indicate Dose Given): None Ultrasound: Sterile probe cover and gel used Nerve Stimulator: Supplement to Ultrasound use and No twitch or parasthesia noted < 0.5 mA Paresthesia: None Procedure Tolerated: No Complications Procedure Outcome: Successful Procedure Comment: Unable to obtain supraclavicular view as patient would not tolerate repositioning, good interscalene view. Patient tolerated the procedure well. Performed By: Lois Laguna
--- NOTE | 2025-02-22 17:13 | ROE_ITS ---
Operative Note Operative Note PRE-OP DIAGNOSIS: Left intra-articular comminuted displaced distal radius fracture and ulnar styloid fracture POST-OP DIAGNOSIS: same PROCEDURE: 1. Left distal radius manipulation/closed reduction under anesthesia, CPT #76473 2. Left wrist application of uniplanar external fixation, CPT #79295 SURGEON: Robles Delgadillo ALL SOURCE INTELLIGENCE TECHNICIAN: Sylvester Porter ANESTHESIA TYPE: Local By Surgeon and General LMA/ETT Refer to Anesthesia Record ESTIMATED BLOOD LOSS: 2 COMPLICATIONS: None Patient was transported to: PACU Patient's condition: stable Implants: Synthes low-profile wrist fixator Indications: Please see complete medical record for details. Findings: Highly comminuted, shortened displaced intra-articular distal radius fracture and ulnar styloid fracture Procedure Description: In the operating room, general anesthesia was induced. The patient was positioned supine on the operating room table. All bony prominences were well- padded. Preoperative antibiotics were administered. The left wrist was prepped and draped in the usual sterile fashion. The correct patient, procedure, and side of the procedure were all verified prior to incision. The left wrist was examined, compartments are soft, there was ecchymosis, and mild edema about the wrist and a bit more moderate edema in the fingertips. 0.25% bupivacaine containing epinephrine was infiltrated about the second metacarpal and radial radial shaft surgery sites. The parallel guide was used with C arm assistance to localize placement of the external fixator pins. A knife was used to open along the dorsal radial margin of the index metacarpal. Soft tissues swept to the side, the index finger positioned in 90 degrees flexion confirming the extensor mechanism was not in the field and rag nail was used to localize the margin of the bone with the Schanz pin directed centrally a nd at the soft tissue guide protector as well used to avoid incarcerating any structures. The proximal pin followed by the distal pin was placed on power self drilling with the threads advanced through the far cortex giving the poor bone quality. The radial margin soft spot of the distal radius was then localized and open similarly taking care to position the guide and pins centrally in the bone and they were set in the far cortex as well. All pins were found to have good fixation strength. The pin clamps were placed and tightened the carbon fiber liz was then provisionally positioned with space for adjustments on both sides and the wrist was reduced. The wrist was then manipulated with traction ulnar deviation and flexion with some dorsal pressure about the fracture site to achieve majority of reduction. Traction in this position and some anterior posterior compression could also reduce the widening and gapping between the anterior and dorsal fragments. Steady hold could reduce the shortened displaced intra-articular lunate fragments. The environmental engineering assistant then provisionally tightened the different joints. C- arm fluoroscopy was used to confirm good reduction, which was slightly adjusted to better accommodate rotation, some traction on the intra-articular shortening, but not too much traction, and while still maintaining the wrist in a reasonable position of comfort. Final tightening was done after final x-rays showed reasonably good position especially radial inclination and length. The intra- articular step-off was minimal. The dorsal angulation could not be corrected without undue distraction or unreasonable flexion at the joint. The external fixator and pin sites were all cleansed. A single of the radial site was loosely closed around the pin with a 3-0 nylon horizontal mattress. Xeroform was applied about the other pin sites followed by gauze pads and a volar plaster splint was placed to support the wrist and hand. The fingers were confirmed to be mobile. The patient awoke from anesthesia without complication and was transferred to the recovery room in a stable condition. Date of Procedure: 02/22/25
--- NOTE | 2025-02-22 17:45 | W.ANESPOSTOP ---
Postoperative Evaluation Date, Time and Location Date Performed: 02/22/25 Time Performed: 17:45 Patient Location: PACU Vital Signs Most Recent Imported Vital Signs: Most Recent Vital Signs Temp Pulse Resp BP Pulse Ox 36.6 C 74 15 139/82 95 02/22/25 17:36 02/22/25 17:36 02/22/25 17:36 02/22/25 17:36 02/22/25 17:36 Pain Score Most Recent Pain Score: Most Recent Pain Score Pain Level 6 02/22/25 17:43 Assessment Mental Status: Awake (Alert & Oriented to Patient Baseline) Airway and Respiratory Function: Patent airway with normal (patient baseline) respiratory exam Cardiovascular Function: Hemodynamically Stable Hydration Status: Adequately Hydrated Nausea & Vomiting: No Nausea or Vomiting Pain: Pain is Moderate or Severe Postoperative Pain Management: Pain being addressed with medication Peripheral Nerve Block: Regional nerve block not resolved at time of post operative discharge
[2025-02-22] MEDS: oxyCODONE 5 MG TAB PO ×2 (18:20→19:37)
--- NOTE | 2025-02-22 18:26 | W.PC.ACHO ---
Registration Status: ADM OSWALDO Primary Language: Preferred Language: [place] Medical / Surgical History (Last Reviewed 02/22/25 @ 10:53 by Tiffany Harmon RN) Lower leg edema Constipation Vaginitis Pyelonephritis History of nephrolithotomy with removal of calculi Closed fracture of proximal end of left humerus (~12/2015) Acute lateral meniscus tear of right knee (08/26/15) Knee pain, right (09/21/13) Pap smear vag w ASC-US (03/04/02) Calculus of kidney and ureter (10/04/12) (Last Reviewed 02/22/25 @ 10:53 by Tiffany Harmon RN) Kidney Stone Extraction (~10/2012) Most Recent Vital Signs Temperature 36.8 C 02/22/25 18:00 Temperature Source Temporal Artery Scan 02/22/25 17:02 Pulse 81 02/22/25 18:00 Pulse Rhythm Regular 02/22/25 10:50 Pulse 74 02/22/25 17:36 Respiratory Rate 18 02/22/25 18:00 Respiratory Depth Normal 02/22/25 10:50 Blood Pressure 136/91 H 02/22/25 18:00 Blood Pressure Mean 96 02/22/25 17:36 Blood Pressure Position Supine 02/22/25 17:02 Pulse Oximetry 91 L 02/22/25 18:00 Respiratory End-tidal CO2 35 02/22/25 17:36 Oxygen Delivery Method Room Air 02/22/25 18:00 Oxygen Flow Rate 2 02/22/25 17:13 Pain Level 6 02/22/25 18:20 Comment Time out performed at 1646 Block performed by Lois DILLON with assistance from Arline SIEGEL and Tiffany SIEGEL. Patient maintained on continuous cardiac and spO2 monitoring. Block start: 1656 Block end: 1700 02/22/25 17:02 Allergies erythromycin base Adverse Reaction (Unknown, Verified 02/22/25 10:54) DIARRHEA Active Medications Generic Name Dose Route Start Last Admin Trade Name Freq PRN Reason Stop Dose Admin Ringer's Solution 1,000 mls @ 30 mls/hr 02/22/25 06:00 02/22/25 17:52 IV 02/22/25 23:59 30 mls/hr INFUSION DAY Infusion Cefazolin Sodium/Dextrose 2 gm in 50 mls @ 100 mls/hr 02/22/25 06:00 02/22/25 15:47 Ancef Duplex IVPB 02/22/25 23:59 Infused PREOP DAY Infusion Oxycodone HCl 0 mg 02/22/25 07:19 02/22/25 18:20 Oxycodone 5 Mg Tab PO 03/24/25 07:18 5 mg Q3H PRN PRN Administration Pain IV IV Catheter Type [Right Peripheral IV Midline] IV Catheter Gauge [Right 20 Midline] Diet Orders Category Date Time Status Diabetes Consistent CHO/Heart Healthy [DIET] Nutrition 02/22/25 Dinner Active Diagnostics 02/22/25 Range/Units 13:05 Sodium 148 H (136-145) mmol/L Potassium 4.5 (3.5-5.1) mmol/L Chloride 115 H (98-107) mmol/L Carbon Dioxide 23.8 (20.0-31.0) mmol/L Anion Gap 9.2 (3-11) mmol/L BUN 31 H (9-23) mg/dL Creatinine 1.6 H (0.55-1.02) mg/dL Est GFR (CKD-EPI 2020) 31.05 (mL/min/1.73m2) Glucose 86 (74-106) mg/dL Calcium 9.3 (8.3-10.6) mg/dL [id number] Documentation Fingerstick Glucose Start: 02/22/25 11:13 Freq: Status: Active Protocol: Activity Type Activity Date Activity User E-sign Co-sign Detail Recorded Client Recorded Date Recorded By Document 02/22/25 17:02 BKG DAEMON(3) [id number] 02/22/25 17:08 BKG DAEMON(4) Intake and Output - 24 Hour Total 02/21/25 13:10 thru 02/22/25 18:00 Intake Total 800 Balance 800 Weight 85.5 kg Intake: IV 650 Oral 150 Other: Emesis Description None Attestation Statement: By documenting the first initial, last name, and credentials of the reporting nurse below, both parties acknowledge that all relevant information regarding the patient handoff has been communicated, and that all questions have been addressed to ensure continuity and safety of care. Additional Patient Information/Comments: Report Received From: Handoff completed with Mitchel Galvez, RN @ [id number]
== END 2025-02-22 20:46 | disposition home or self-care (01) ==
LOC: MS 02-23 08:55
PROVIDERS: Student in an Organized Health Care Education/Training Program; Admitting Provider Student in an Organized Health Care Education/Training Program; PCP Family Medicine; Visit Provider Student in an Organized Health Care Education/Training Program
PROC: (CPT 25605; principal; 2025-02-22 11:45)
DX: S52.572G Other intraarticular fracture of lower end of left radius, subsequent encounter for closed fracture with delayed healing (principal); S52.612G Displaced fracture of left ulna styloid process, subsequent encounter for closed fracture with delayed healing; W10.9XXD Fall (on) (from) unspecified stairs and steps, subsequent encounter; E53.8 Deficiency of other specified B group vitamins; G47.30 Sleep apnea, unspecified; I12.9 Hypertensive chronic kidney disease with stage 1 through stage 4 chronic kidney disease, or unspecified chronic kidney disease; E11.22 Type 2 diabetes mellitus with diabetic chronic kidney disease; K21.9 Gastro-esophageal reflux disease without esophagitis; E78.5 Hyperlipidemia, unspecified; E03.9 Hypothyroidism, unspecified; E66.9 Obesity, unspecified; N18.30 Chronic kidney disease, stage 3 unspecified; K59.00 Constipation, unspecified; Z79.4 Long term (current) use of insulin; G89.18 Other acute postprocedural pain
CPT/HCPCS: 25605; 20690; 36415; 64415; 76000; 80048; 73100; G0378; J0131; J0665; J0666; J0690; J1100; J1171; J2371; J2405; J2704; J3010

== ENCOUNTER 2025-03-06 11:12 | Outpatient (CLI) | payer MEDICARE, SELFPAY ==
--- NOTE | 2025-03-06 10:45 | DI.RAD_ITS ---
Exam(s) XR WRIST LT LIMITED EXAM: XR WRIST LT LIMITED CLINICAL HISTORY: F/U FRACTURE. TECHNIQUE: 2D digital imaging was performed of the left wrist. Two images were obtained. Scaphoid, PA, oblique and lateral views were obtained. COMPARISON: CR XR WRIST LT HW from 02/13/2025 CR XR WRIST LT LIMITED from 02/20/[address] UPPER EXTREMITY LT WO from 02/21/2025 XA XR WRIST LT LIMITED from 02/22/2025 FINDINGS: The patient has left wrist is in a external fixating device. BONES: There is again seen a mildly displaced ulnar styloid process fracture. There is again seen a comminuted intra-articular fracture of the distal radius. The fracture is mildly impacted. No bony destructive lesion is seen. JOINTS: The carpal bones are normally aligned. SOFT TISSUE: There is soft tissue swelling of the wrist. IMPRESSION: 1. Comminuted intra-articular fracture involving the distal radius. 2. Mildly displaced ulnar styloid process fracture. DATA REPOSITORY: RADIATION DOSE DELIVERED:
== END 2025-03-06 11:13 | disposition home or self-care (01) ==
LOC: DIORS 11:12
PROVIDERS: PCP Family Medicine; Referring Provider Family Medicine; Visit Provider Student in an Organized Health Care Education/Training Program
DX: S52.502D Unspecified fracture of the lower end of left radius, subsequent encounter for closed fracture with routine healing (principal); M25.642 Stiffness of left hand, not elsewhere classified; G56.02 Carpal tunnel syndrome, left upper limb; X58.XXXD Exposure to other specified factors, subsequent encounter
CPT/HCPCS: 99024; 73100

== ENCOUNTER 2025-03-21 15:21 | Outpatient (CLI) | payer MEDICARE, SELFPAY ==
--- NOTE | 2025-03-21 10:15 | DI.RAD_ITS ---
Exam(s) XR WRIST LT LIMITED EXAM: XR WRIST LT LIMITED CLINICAL HISTORY: F/U FRACTURE. TECHNIQUE: 2D digital imaging was performed. Three views. COMPARISON: CR XR WRIST LT LIMITED from 02/20/[address] UPPER EXTREMITY LT WO from 02/21/2025 CR XR WRIST LT LIMITED from 03/06/2025 FINDINGS: BONES: An external fixation device is again noted in the distal radius and 2nd metacarpal. The alignment of the distal radial and ulnar styloid fractures appears unchanged. Has been some increased healing when compared with the previous exam. No acute fracture is present. No bony destructive lesion is seen. JOINTS: The carpal bones are normally aligned. SOFT TISSUE: Normal. IMPRESSION: Continued healing of the distal radial and ulnar styloid fractures. DATA REPOSITORY: RADIATION DOSE DELIVERED:
--- NOTE | 2025-03-21 10:30 | DI.RAD_ITS ---
Exam(s) XR HAND LT LIMITED EXAM: XR HAND LT LIMITED CLINICAL HISTORY: LEFT RING FINGER PAIN. TECHNIQUE: 2D digital imaging was performed. Three views. COMPARISON: RF FLUORO UP TO 1 HOUR BD from 02/13/2025 CR XR WRIST LT HW from 02/13/2025 CR XR WRIST LT HW from 02/13/2025 CR XR WRIST LT LIMITED from 02/20/[address] UPPER EXTREMITY LT WO from 02/21/2025 CR XR WRIST LT LIMITED from 03/06/2025 CR XR FINGER LT RING POST REDUC from 03/21/2025 CR XR WRIST LT LIMITED from 03/21/2025 FINDINGS: BONES: there is a nondisplaced volar plate fracture of the middle phalanx of the ring finger which appears subacute. Previously noted fractures of the distal radius and ulna are grossly unchanged.. No bony destructive lesion is seen. JOINTS: There is posterior subluxation at the PIP joint. SOFT TISSUE: Normal. IMPRESSION: Volar plate fracture of the middle phalanx of the ring finger. Posterior subluxation at the PIP joint. DATA REPOSITORY: RADIATION DOSE DELIVERED:
--- NOTE | 2025-03-21 12:45 | DI.RAD_ITS ---
Exam(s) XR FINGER LT RING POST REDUC EXAM: XR FINGER LT RING POST REDUC INDICATION: RING FINGER REDUCTION. COMPARISON: CR XR HAND LT LIMITED from 03/21/2025 TECHNIQUE: 2D digital imaging was performed. Lateral view FINDINGS: The previously noted posterior subluxation at the PIP joint has been corrected. The fracture at the volar plate remains nondisplaced. DATA REPOSITORY: RADIATION DOSE DELIVERED:
== END 2025-03-21 15:22 | disposition home or self-care (01) ==
LOC: DIORS 15:21
PROVIDERS: PCP Family Medicine; Referring Provider Family Medicine; Visit Provider Student in an Organized Health Care Education/Training Program
DX: M25.642 Stiffness of left hand, not elsewhere classified (principal); S63.235A Subluxation of proximal interphalangeal joint of left ring finger, initial encounter; W22.8XXA Striking against or struck by other objects, initial encounter; G56.02 Carpal tunnel syndrome, left upper limb; S52.502D Unspecified fracture of the lower end of left radius, subsequent encounter for closed fracture with routine healing; X58.XXXD Exposure to other specified factors, subsequent encounter
CPT/HCPCS: 99214; 26770; 73140; 73100; 73120